=== PATIENT | female | born 1960 | race Caucasian/White ===

== ENCOUNTER → 2020-10-17 10:29 | Outpatient (CLI) | payer BC, SELFPAY ==
--- NOTE | ~2020-10-17 | CT_ITS ---
EXAMINATION:CT lung screening DATE: 10/17/2020 10:45 INDICATION: Personal history of tobacco dependence. Smoker who quit 11 years ago with 30 pack year hi story. TECHNIQUE: Computed tomography (CT) of the chest was performed without intravenous contrast. Automate d exposure control and iterative reconstruction technique were employed. The dose-length product (DLP ) was 243.47 mGy-cm. COMPARISON: None. FINDINGS: There is mild scarring in paraspinal right lower lobe. No pleural effusion. The heart size is normal. No pericardial effusion. There is a 2.7 cm cyst in the spleen. There are changes of anteri or fusion procedure in cervical spine. There is mild thoracic spondylosis. IMPRESSION: 1. Lung-RADS category 2: Benign appearance or behavior. Continue annual screening with noncontrast lo w-dose chest CT in 12 months. Reviewed, dictated and finalized at location A. IMPRESSION: 1. Lung-RADS category 2: Benign appearance or behavior. Continue annual screeni ng with noncontrast low-dose chest CT in 12 months.
== END ==
PROVIDERS: PCP Family Medicine; Visit Provider Family Medicine
DX: Z12.2 Encounter for screening for malignant neoplasm of respiratory organs (principal); Z87.891 Personal history of nicotine dependence
CPT/HCPCS: 71271

== ENCOUNTER → 2021-05-13 11:43 | Outpatient (CLI) | payer BC, SELFPAY ==
--- NOTE | ~2021-05-13 | DEXA_ITS ---
Bone Density Report Name: GURMEET SPRAGUE Age: 60 Sex: Female Ethnicity: White Date of : 1960 Indication: postmenopausal; screening for osteoporosis; height loss; asthma or emphysema; hysterectomy; Referring Provider: MAURILIO CONTRERAS Study: Bone densitometry was performed. Exam Date: May 13, 2021 Accession number: [id number] Bone Density: Region BMD T-score Z-score Classification AP Spine (L1-L4) 1.222 1.6 3.1 Normal Femoral Neck (Left) 0.611 -2.1 -0.8 Osteopenia Total Hip (Left) 0.825 -1.0 0.1 Normal Femoral Neck (Right) 0.647 -1.8 -0.5 Osteopenia Total Hip (Right) 0.824 -1.0 0.1 Normal Total Hip Mean 0.825 -1.0 0.1 Normal World Health Organization criteria for BMD impression classify patients as: Normal (T-score at or above -1.0), Osteopenia (T-score between -1.0 and -2.5), or Osteoporosis (T-score at or below -2.5). 10-year Fracture Risk(1): Major Osteoporotic Fracture 9.7% Hip Fracture 1.3% Reported Risk Factors: [place] (), Neck BMD=0.611, BMI=35.0 (1) FRAX(R) Version 3.08. Fracture probability calculated for an untreated patient. Fracture probability may be lower if the patient has received treatment. Clinical Information Provided by Patient: Has used the following medications: Vitamin D, Calcium Has the following medical conditions: Asthma or Emphysema, Hysterectomy Patient maximum height was 64.5 Menopause Age: 60 Does not regularly consume dairy products Drinks caffeinated beverages Onset of menses at age 11 Number of children 2 Impression: The patient has low bone mass, based on the Left Femoral Neck T-score. The patient has an estimated ten-year risk of hip fracture of 1.3% and an estimated ten-year risk of major fracture of 9.7%, based on the WHO FRAX algorithm. Discussion: BONE DENSITY IS LOW AT ONE OR MORE SKELETAL SITES. This patient's lowest T-score is low at one or more skeletal sites. It meets the World Health Organization's (WHO) criteria for ?low bone mass? (T-score between -1.0 and -2.5). The patient's 10-year risk of fracture as calculated by FRAX is less than the threshold where pharmacological therapy is recommended by the National Osteoporosis Foundation (NOF). However, all treatment decisions require clinical judgment and consideration of individual patient factors, including patient preferences, comorbidities, previous drug use, risk factors not captured in the FRAX model (e.g., frailty, falls, vitamin D deficiency, increased bone turnover, interval significant decline in bone density) and possible under or overestimation of fracture risk by FRAX. The patient should follow a healthful lifestyle (good nutrition with adequate calcium and vitamin D, and appropriate weight-bearing exercise). Follow-Up: Consider repeating this study in 2 to 3 ye
== END ==
PROVIDERS: Visit Provider Family Medicine
DX: M85.852 Other specified disorders of bone density and structure, left thigh (principal); M85.851 Other specified disorders of bone density and structure, right thigh
CPT/HCPCS: 77080

== ENCOUNTER 2021-10-20 13:53 | Emergency (ER) | payer BC, SELFPAY ==
--- NOTE | ~2021-10-20 | XR_ITS ---
EXAMINATION: XR ankle RT min 3V DATE: 10/20/2021 14:11 INDICATION: Right ankle injury and pain. TECHNIQUE: 4 views of right ankle were obtained. COMPARISON: None. FINDINGS: There is an oblique fracture of distal fibula with medial aspect of the fracture line 2 mm proximal to the level of the tibial plafond. The distal fracture fragment demonstrates 2 mm lateral d isplacement. Joint spaces are normal. There is an enthesophyte at plantar aspect of calcaneal tuberos ity. Ankle soft tissue swelling is noted. IMPRESSION: 1. Oblique fracture of distal fibula. Reviewed, dictated and finalized at location A.
--- NOTE | 2021-10-20 13:58 | ED.LOWEXIN ---
HPI - Extremity Injury (Lower) General Chief Complaint: Extremity Injury, Lower Stated Complaint: R ANKLE INJURY Time Seen by Provider: 10/20/21 13:58 Source: patient and RN notes reviewed History of Present Illness HPI Narrative: Patient 61-year-old female presents the urgent care with complaints of right ankle pain and swelling. Patient states that on the she missed 1 step going down the basement steps and twisted the right ankle. Patient states that she has been elevating, using ice/Tylenol/ibuprofen as needed for pain and comfort. Patient states that she has wrapped it with the Louis wrap which seems to increase the swelling . Patient states her pain is exacerbated with ambulation and weightbearing. No other acute complaints or injuries from the fall. No acute distress noted. Patient aware of the plan of care. Some parts of this dictation were generated by voice recognition software and may contain typographical and/or grammatical inaccuracies. Related Data Home Medications Medication Instructions Recorded Confirmed albuterol sulfate 90 mcg/actuation 1 puff inhalation Q4H PRN 07/27/19 07/29/21 aerosol inhaler (Ventolin HFA) ascorbic acid (vitamin C) 1,000 mg 1 gm PO DAILY 07/27/19 07/29/21 tablet famotidine 20 mg tablet (Pepcid AC) 20 mg PO DAILY 07/27/19 07/29/21 fluticasone furoate 200 1 inhalation inhalation DAILY 07/27/19 07/29/21 mcg-vilanterol 25 mcg/dose inhalation powder (Breo Ellipta) nfrakshaiuel-Jw-iudj-minerals 1 tablet PO DAILY 07/27/19 07/29/21 (Multiple Vitamin, Womens tablet) tiotropium bromide 18 mcg capsule 1 cap inhalation DAILY 07/27/19 07/29/21 with inhalation device (Spiriva with HandiHaler) paroxetine HCl 10 mg tablet (Paxil) 10 mg PO DAILY 10/17/19 07/29/21 epinephrine 0.15 mg/0.3 mL 0.15 mg IM Q30M PRN 02/25/21 07/29/21 injection,auto-injector (EpiPen Jr 2-[place]) eyepromise restore BYMOUTH ONCE 02/25/21 07/29/21 Allergies Allergy/AdvReac Type Severity Reaction Status Date / Time shellfish derived Allergy Severe anaphylaxis Verified 10/20/21 14:03 acrisorcin Allergy Mild Rash Verified 10/20/21 14:03 benazepril Allergy Unknown cough Verified 10/20/21 14:03 cat dander Allergy Unknown unknown Verified 10/20/21 14:03 cefuroxime Allergy Unknown Skin Verified 10/20/21 14:03 Reaction demeclocycline Allergy Unknown Skin Verified 10/20/21 14:03 Reaction dog dander Allergy Unknown unknown Verified 10/20/21 14:03 Sulfa (Sulfonamide Allergy Unknown Skin Verified 10/20/21 14:03 Antibiotics) Reaction SHELLFISH Allergy Mild SWELLING/ Uncoded 10/20/21 14:03 RASH/anaphylaxis Review of Systems Review of Systems: CONSTITUTIONAL: Denies fever, chills, or sweats. EYES: Denies visual changes, redness, or discharge. ENT: Denies rhinorrhea, congestion, sore throat, or otalgia. CARDIOVASCULAR: Denies chest pain, palpitations, or edema. RESPIRATORY: Denies cough or dyspnea. GASTROINTESTINAL: Denies abdominal pain, nausea, vomiting, or diarrhea. GENITOURINARY: Denies dysuria or hematuria. SKIN: Denies rash or itching. MUSCULOSKELETAL: Reports of right ankle pain and swelling NEUROLOGIC: Denies headache, numbness, or weakness. All other systems reviewed are negative, except as documented in HPI. [facility] Past Medical History Medical History Benign neoplasm of colon Surgical History Surgical History History of left breast biopsy path pending Family History Family History Father Diabetes mellitus Hypertension Mother Hypertension Family history of elevated blood lipids Grandparent Family history of malignant neoplasm of breast Other Family history of arthritis Family history of malignant neoplasm Social History Social History (Updated 07/29/21 @ 10:57 by Aide Jha CMA) Smoking packs pe
[2021-10-20 14:00] VITALS: BP 109/62; PULSE 73; RESP 16; TEMP 36.9; O2SAT 96
== END 2021-10-20 15:01 | disposition home or self-care (01) ==
PROVIDERS: Emergency Provider Nurse Practitioner Family; PCP Family Medicine
DX: S82.831A Other fracture of upper and lower end of right fibula, initial encounter for closed fracture (principal); X50.9XXA Other and unspecified overexertion or strenuous movements or postures, initial encounter; Z87.891 Personal history of nicotine dependence
CPT/HCPCS: 29515; 73610; 99214; G0463

== ENCOUNTER → 2021-11-13 10:41 | Outpatient (CLI) | payer BC, SELFPAY ==
--- NOTE | ~2021-11-13 | CT_ITS ---
EXAMINATION: CT lung screening DATE: 11/13/2021 10:59 INDICATION: Personal history of tobacco dependence TECHNIQUE: Computed tomography (CT) of the chest was performed without intravenous contrast. The dose -length product was 202.86 mGy-cm. Automated exposure control and iterative reconstruction technique were employed. COMPARISON: CT dated 10/17/2020 FINDINGS: No thoracic lymphadenopathy. Heart size normal. No significant pleural or pericardial effus ion. Small hiatal hernia. There is a splenic cyst measuring 2 cm. Mild thoracic spondylosis. There ar e changes of anterior fusion of the cervical spine. No endobronchial lesions. No pneumothorax. No foc al airspace consolidation. There is a 2 mm left upper lobe nodule. IMPRESSION: 1. Lung-RADS category 2: Benign appearance or behavior. Continue annual screening with noncontrast lo w-dose chest CT in 12 months. Reviewed, dictated and finalized at location A. IMPRESSION: 1. Lung-RADS category 2: Benign appearance or behavior. Continue annual screeni ng with noncontrast low-dose chest CT in 12 months.
== END ==
PROVIDERS: PCP Family Medicine; Visit Provider Family Medicine
DX: Z12.2 Encounter for screening for malignant neoplasm of respiratory organs (principal); Z87.891 Personal history of nicotine dependence
CPT/HCPCS: 71271

== ENCOUNTER → 2022-12-18 10:19 | Outpatient (CLI) | payer BC, SELFPAY ==
--- NOTE | ~2022-12-18 | CT_ITS ---
EXAMINATION: CT lung screening DATE: 12/18/2022 10:31 INDICATION: Lung cancer screening TECHNIQUE: Computed tomography (CT) of the chest was performed without intravenous contrast. The dose -length product was 332.52 mGy-cm. Automated exposure control and iterative reconstruction technique were employed. COMPARISON: CT dated 11/13/2021 FINDINGS: No significant pleural or pericardial effusion. Small hiatal hernia. Heart size normal. No thoracic lymphadenopathy. No significant vascular abnormality. Upper abdomen is unremarkable. No endo bronchial lesions. No pneumothorax. No focal airspace consolidation. Stable splenic cysts. Mild emphy sema. No suspicious pulmonary nodules or masses. Partially visualized surgical fusion changes of the lower cervical spine. Mild thoracic spondylosis. IMPRESSION: 1. Lung-RADS category 1: Negative. Continue annual screening with noncontrast low-dose chest CT in 12 months. Reviewed, dictated and finalized at location B. IMPRESSION: 1. Lung-RADS category 1: Negative. Continue annual screening with noncontrast l ow-dose chest CT in 12 months.
== END ==
PROVIDERS: PCP Family Medicine; Visit Provider Family Medicine
DX: Z12.2 Encounter for screening for malignant neoplasm of respiratory organs (principal); Z87.891 Personal history of nicotine dependence
CPT/HCPCS: 71271

== ENCOUNTER 2023-03-17 02:24 | Day surgery (SDC) | payer BC, SELFPAY ==
[2023-03-03 13:50] VITALS: BMI 39.0
--- NOTE | 2023-03-15 09:16 | SUR.PREOP ---
Patient called regarding upcoming procedure. Message left on patient' s voicemail regarding preop instructions, appointment times, and procedure prep.
--- NOTE | 2023-03-16 13:23 | PM.HPGS ---
History of Present Illness History of Present Illness Consent: Risks, benefits, and alternatives have been discussed and questions answered. Patient agrees to proceed with procedure. Chief complaint: hx of colon polyps Narrative: Yumi Tello is a 62 year old female referred for colon cancer screening. She had a polyp removed in 2011 and again in 2019. Review of Systems Review of Systems: All systems reviewed & are unremarkable except as noted in HPI and below PMFSH Past Medical History Medical History Benign neoplasm of colon Breast pain, left Fracture of distal fibula Surgical History Surgical History History of hysterectomy (~06/28/07) Uterus & Cervix Only History of laparoscopy (~1989) Removal of Ovarian Cyst History of left breast biopsy path pending History of neck surgery (~01/27/18) Anterior Cervical Discectomy & Fusion C5-6, C6-7 History of tubal ligation (~08/1984) Family History Family History Father Diabetes mellitus Hypertension Mother Hypertension Family history of elevated blood lipids Grandparent Family history of malignant neoplasm of breast Other Family history of arthritis Family history of malignant neoplasm Social History Social History Smoking packs per day: 1 Smoking cigarettes per day: 20.0 Years smoked: 35 Smoking pack-years: 35.00 Smoking status: Never smoker Second hand tobacco smoke exposure: No Smoking end date: 04/05/13 Alcohol intake: current Alcohol use details: once every couple weeks Substance use type: does not use Lack of Transportation: No Lack of Food: Never True Current Housing: I Have Housing Concerned About Future Housing: No Difficulty Paying Gas/Electric Bills: No Difficulty Paying for Meds: No Currently Unemployed: No Education: Bachelor's Degree Difficulty w/ Childcare or Family Care: No Living arrangements: alone Meds Home Medications and Allergies Home Medications Medication Instructions Recorded Confirmed Type famotidine 20 mg tablet (Pepcid AC) 20 mg PO DAILY 07/27/19 03/17/23 History fluticasone furoate 200 1 inhalation inhalation DAILY 07/27/19 03/17/23 History mcg-vilanterol 25 mcg/dose inhalation powder (Breo Ellipta) zvnvwjoycqod-Oo-jwgv-minerals 1 tablet PO DAILY 07/27/19 03/17/23 History (Multiple Vitamin, Womens tablet) tiotropium bromide 18 mcg capsule 1 cap inhalation DAILY 07/27/19 03/17/23 History with inhalation device (Spiriva with HandiHaler) paroxetine HCl 10 mg tablet (Paxil) 10 mg PO DAILY 10/17/19 03/17/23 History eyepromise restore 8 mg BYMOUTH ONCE 02/25/21 03/17/23 History albuterol sulfate 90 mcg/actuation 1 puff inhalation DAILY PRN 11/10/22 03/17/23 History aerosol inhaler (Ventolin HFA) Shortness Of Breath epinephrine 0.3 mg/0.3 mL See Rx Instructions .Route .COMPLEX 11/10/22 03/17/23 History injection, auto-injector (EpiPen) meclizine 25 mg chewable tablet 25 mg PO TID PRN dizziness #30 tabs 11/10/22 03/17/23 Rx (Antivert) telmisartan 20 mg tablet 10 mg PO DAILY #45 tabs 01/20/23 03/17/23 Rx atorvastatin 40 mg tablet 40 mg PO DAILY 03/03/23 03/17/23 History Allergies Allergy/AdvReac Type Severity Reaction Status Date / Time shellfish derived Allergy Severe anaphylaxis Verified 03/17/23 07:27 acrisorcin Allergy Mild Rash Verified 03/17/23 07:27 benazepril Allergy Unknown cough Verified 03/17/23 07:27 cat dander Allergy Unknown unknown Verified 03/17/23 07:27 cefuroxime Allergy Unknown Skin Verified 03/17/23 07:27 Reaction demeclocycline Allergy Unknown Skin Verified 03/17/23 07:27 Reaction dog dander Allergy Unknown unknown Verified 03/17/23 07:27 Sulfa (Sulfonamide Allergy Unknown Skin Verified 03/17/23 07:27 Antibio
[2023-03-17 07:30] VITALS: BP 123/68; PULSE 76; RESP 18; TEMP 36.3; O2SAT 97
[2023-03-17] MEDS: LACTATED RINGERS 1,000 ML 150 ML IV CONT (07:37)
--- NOTE | 2023-03-17 07:58 | WPDANESEPPF ---
Anes - Initial Pre Proc Eval Procedure: Operation Date: 03/17/23 08:30 Proposed Procedures p Colonoscopy - David Geller MD Date/Time: 03/17/23 07:58 Surgeon: David Geller MD Pre Op Diagnosis: hx of colon polyps Patient Data Age: 62 Gender: F Height: 1.6 m Weight: 97.4 kg Last Vital Signs Temp 97.3 F L 03/17/23 07:30 Pulse 76 03/17/23 07:30 Resp 18 03/17/23 07:30 BP 123/68 03/17/23 07:30 Pulse Ox 97 03/17/23 07:30 O2 Del Method Room Air 03/17/23 07:30 Allergies Allergy/AdvReac Type Severity Reaction Status Date / Time shellfish derived Allergy Severe anaphylaxis Verified 03/17/23 07:27 acrisorcin Allergy Mild Rash Verified 03/17/23 07:27 benazepril Allergy Unknown cough Verified 03/17/23 07:27 cat dander Allergy Unknown unknown Verified 03/17/23 07:27 cefuroxime Allergy Unknown Skin Verified 03/17/23 07:27 Reaction demeclocycline Allergy Unknown Skin Verified 03/17/23 07:27 Reaction dog dander Allergy Unknown unknown Verified 03/17/23 07:27 Sulfa (Sulfonamide Allergy Unknown Skin Verified 03/17/23 07:27 Antibiotics) Reaction Home Medications Medication Instructions Recorded Confirmed Type famotidine 20 mg tablet (Pepcid AC) 20 mg PO DAILY 07/27/19 03/17/23 History fluticasone furoate 200 1 inhalation inhalation DAILY 07/27/19 03/17/23 History mcg-vilanterol 25 mcg/dose inhalation powder (Breo Ellipta) dbsgzozxvpki-Mm-khtx-minerals 1 tablet PO DAILY 07/27/19 03/17/23 History (Multiple Vitamin, Womens tablet) tiotropium bromide 18 mcg capsule 1 cap inhalation DAILY 07/27/19 03/17/23 History with inhalation device (Spiriva with HandiHaler) paroxetine HCl 10 mg tablet (Paxil) 10 mg PO DAILY 10/17/19 03/17/23 History eyepromise restore 8 mg BYMOUTH ONCE 02/25/21 03/17/23 History albuterol sulfate 90 mcg/actuation 1 puff inhalation DAILY PRN 11/10/22 03/17/23 History aerosol inhaler (Ventolin HFA) Shortness Of Breath epinephrine 0.3 mg/0.3 mL See Rx Instructions .Route .COMPLEX 11/10/22 03/17/23 History injection, auto-injector (EpiPen) meclizine 25 mg chewable tablet 25 mg PO TID PRN dizziness #30 tabs 11/10/22 03/17/23 Rx (Antivert) telmisartan 20 mg tablet 10 mg PO DAILY #45 tabs 01/20/23 03/17/23 Rx atorvastatin 40 mg tablet 40 mg PO DAILY 03/03/23 03/17/23 History Patient hx anesthesia problems: none Family hx anesthesia problems: none Results Review: All pre-operative results and documents have been reviewed as part of the pre-operative evaluation. [facility] Past Medical History Medical History Benign neoplasm of colon Breast pain, left Fracture of distal fibula Surgical History Surgical History History of hysterectomy (~06/28/07) Uterus & Cervix Only History of laparoscopy (~1989) Removal of Ovarian Cyst History of left breast biopsy path pending History of neck surgery (~01/27/18) Anterior Cervical Discectomy & Fusion C5-6, C6-7 History of tubal ligation (~08/1984) Family History Family History Father Diabetes mellitus Hypertension Mother Hypertension Family history of elevated blood lipids Grandparent Family history of malignant neoplasm of breast Other Family history of arthritis Family history of malignant neoplasm Social History Social History Smoking packs per day: 1 Smoking cigarettes per day: 20.0 Years smoked: 35 Smoking pack-years: 35.00 Smoking status: Never smoker Second hand tobacco smoke exposure: No Smoking end date: 04/05/13 Alcohol intake: current Alcohol use details: once every couple weeks Substance use type: does not use Lack of Transportation: No Lack of Food: Never True Current Housing: I Have Housing Concerned About Future Housing: No
[2023-03-17 08:29] VITALS: BP 96/52; PULSE 77; RESP 16; O2SAT 95
[2023-03-17 08:39] VITALS: BP 95/53; PULSE 77; RESP 20; O2SAT 99
[2023-03-17 08:49] VITALS: BP 108/60; PULSE 74; RESP 17; O2SAT 100
== END 2023-03-17 08:58 | disposition home or self-care (01) ==
PROVIDERS: PCP Family Medicine; Visit Provider Internal Medicine Gastroenterology
PROC: 0DJD8ZZ Inspection of Lower Intestinal Tract, Via Natural or Artificial Opening Endoscopic (ICD-10-PCS; CPT 45378; principal; 2023-03-17 08:30)
DX: Z12.11 Encounter for screening for malignant neoplasm of colon (principal); K63.5 Polyp of colon; K64.8 Other hemorrhoids; Z79.51 Long term (current) use of inhaled steroids; Z98.1 Arthrodesis status; Z87.891 Personal history of nicotine dependence; E66.9 Obesity, unspecified; Z68.38 Body mass index [BMI] 38.0-38.9, adult
CPT/HCPCS: 45380; 88305; J2704; J7120

== ENCOUNTER 2023-06-07 11:20 | Outpatient (CLI) | payer BC, SELFPAY | END 2023-06-07 11:21 | disposition home or self-care (01) | LOC: ANHAUDASC 11:21 | PROVIDERS: PCP Family Medicine; Visit Provider Family Medicine | DX: M48.02 Spinal stenosis, cervical region (principal); G99.2 Myelopathy in diseases classified elsewhere; H90.3 Sensorineural hearing loss, bilateral | CPT/HCPCS: 92557; 92567 ==

== ENCOUNTER → 2023-06-08 10:30 | Outpatient (CLI) | payer BC, SELFPAY ==
--- NOTE | ~2023-06-08 | XR_ITS ---
EXAMINATION: XR chest 2V DATE: 06/08/2023 10:45 INDICATION: Persistent cough. TECHNIQUE: Frontal and lateral views of the chest were obtained. COMPARISON: Chest 2 views 12/01/2018, CT chest 12/18/2022 FINDINGS: There is no pneumonia, pleural effusion, or pneumothorax. The heart size is normal. There a re changes of anterior fusion procedure in cervical spine. IMPRESSION: 1. No acute cardiopulmonary disease. Reviewed, dictated and finalized at location E. ITUAL COUNSELOR
== END ==
PROVIDERS: PCP Family Medicine; Visit Provider Family Medicine
DX: R05.9 Cough, unspecified (principal)
CPT/HCPCS: 71046

== ENCOUNTER 2024-02-18 13:46 | Outpatient (CLI) | payer BC, SELFPAY ==
--- NOTE | ~2024-02-18 | CT_ITS ---
EXAMINATION:CT lung screening DATE: 02/18/2024 14:00 INDICATION: Personal history of nicotine dependence. Smoker who quit 10 years ago with 35 pack year h istory. TECHNIQUE: Computed tomography (CT) of the chest was performed without intravenous contrast. Automate d exposure control and iterative reconstruction technique were employed. The dose-length product (DLP ) was 240.26 mGy-cm. COMPARISON: Chest CT 12/18/2022 FINDINGS: The lungs demonstrate mild scarring in paraspinal right lower lobe. No pleural effusion. Th e heart size is normal. No pericardial effusion. There is a small sliding hiatal hernia. There are ch anges of anterior fusion procedure in cervical spine. There is moderate thoracic spondylosis. IMPRESSION: 1. Lung-RADS category 2: Benign appearance or behavior. Continue annual screening with noncontrast lo w-dose chest CT in 12 months. Reviewed, dictated and finalized at location A. SLIDER IMPRESSION: 1. Lung-RADS category 2: Benign appearance or behavior. Continue annual screeni ng with noncontrast low-dose chest CT in 12 months.
== END 2024-02-18 13:47 | disposition home or self-care (01) ==
LOC: MICIMG 13:47
PROVIDERS: PCP Family Medicine; Visit Provider Student in an Organized Health Care Education/Training Program
DX: Z12.2 Encounter for screening for malignant neoplasm of respiratory organs (principal); Z87.891 Personal history of nicotine dependence
CPT/HCPCS: 71271

== ENCOUNTER 2024-04-06 12:37 | Outpatient (CLI) | payer BC, SELFPAY ==
--- NOTE | ~2024-04-06 | XR_ITS ---
HISTORY: M25.519 - Pain in unspecified shoulder COMPARISON: None TECHNIQUE: 3 views of the right shoulder were performed FINDINGS: No acute fracture. The glenohumeral and acromioclavicular joint space is maintained The visualized portion of the adjacent right lung is clear. The humeral head is well seated within the glenoid fossa. IMPRESSION: No acute fracture or anterior dislocation. Reviewed, dictated and finalized at location A. E QA TESTER
== END 2024-04-06 12:38 | disposition home or self-care (01) ==
LOC: MICIMG 12:38
PROVIDERS: PCP Family Medicine; Visit Provider Student in an Organized Health Care Education/Training Program
DX: M25.511 Pain in right shoulder (principal)
CPT/HCPCS: 73030

== ENCOUNTER 2024-06-20 10:04 | Outpatient (CLI) | payer MEDICARE, OTHER, SELFPAY ==
--- NOTE | 2024-06-20 11:00 | NEURO_ITS ---
Impression: # Complains of right forearm numbness. Non-diabetic. ? # No Carpal Tunnel Syndrome or ulnar neuropathy. ? # Needle/EMG exam abnormal in bilateral triceps related to previous neck surgery. ? # Clinical correlation recommended. Nerve Conduction Studies Anti Sensory Summary Table ?Stim Site NR Peak (ms) P-T Amp (?V) Site1 Site2 Delta-P (ms) Dist (cm) Nabil (m/s) Left Median Anti Sensory (2-3nd Digit) Wrist ? 2.6 20.7 Wrist 2-3nd Digit 2.6 14.0 54 Wrist ? 2.8 27.4 Wrist 2-3nd Digit 2.6 14.0 54 Right Median Anti Sensory (2-3nd Digit) Wrist ? 2.4 73.9 Wrist 2-3nd Digit 2.4 14.0 58 Wrist ? 2.4 77.9 Wrist 2-3nd Digit 2.4 14.0 58 Left Radial Anti Sensory (Base 1st Digit) Wrist ? 2.2 34.1 Wrist Base 1st Digit 2.2 0.0 Right Radial Anti Sensory (Base 1st Digit) Wrist ? 2.3 36.2 Wrist Base 1st Digit 2.3 0.0 Left Ulnar Anti Sensory (5th Digit) Wrist ? 2.7 31.2 Wrist 5th Digit 2.7 14.0 52 Right Ulnar Anti Sensory (5th Digit) Wrist ? 2.3 30.3 Wrist 5th Digit 2.3 14.0 61 Motor Summary Table ?Stim Site NR Onset (ms) O-P Amp (mV) Site1 Site2 Delta-0 (ms) Dist (cm) Nabil (m/s) Left Median Motor (Abd Poll Brev) Wrist ? 2.7 6.2 Elbow Wrist 4.6 28.0 61 Elbow ? 7.3 3.5 Right Median Motor (Abd Poll Brev) Wrist ? 2.5 7.5 Elbow Wrist 4.7 28.0 60 Elbow ? 7.2 5.0 Left Ulnar Motor (Abd Dig Minimi) Wrist ? 2.3 6.7 A Elbow Wrist 5.0 30.0 60 A Elbow ? 7.3 4.1 Right Ulnar Motor (Abd Dig Minimi) Wrist ? 2.3 6.7 A Elbow Wrist 4.9 29.0 59 A Elbow ? 7.2 6.1 F Wave Studies ?NR F-Lat (ms) L-R F-Lat (ms) Left Median (Mrkrs) (Abd Poll Brev) ? 25.40 0.41 Right Median (Mrkrs) (Abd Poll Brev) ? 25.81 0.41 Left Ulnar (Mrkrs) (Abd Dig Min) ? 25.78 0.39 Right Ulnar (Mrkrs) (Abd Dig Min) ? 25.39 0.39 EMG ?Side Muscle Nerve Root Ins Act Fibs Amp Dur Recrt Comment Right 1stDorInt Ulnar C8-T1 Nml Nml Nml Nml Nml Right Ext Indicis Radial (Post Int) C7-8 Nml Nml Nml Nml Nml Right Ext Digitorum Radial (Post Int) C7-8 Nml Nml Nml Nml Nml Right BrachioRad Radial C5-6 Nml Nml Nml Nml Nml Right PronatorTeres Median C6-7 Nml Nml Nml Nml Nml Right Abd Poll Brev Median C8-T1 Nml Nml Nml Nml Nml Right ABD Dig Min Ulnar C8-T1 Nml Nml Nml Nml Nml Left 1stDorInt Ulnar C8-T1 Nml Nml Nml Nml Nml Left Ext Indicis Radial (Post Int) C7-8 Nml Nml Nml Nml Nml Left Ext Digitorum Radial (Post Int) C7-8 Nml Nml Nml Nml Nml Left BrachioRad Radial C5-6 Nml Nml Nml Nml Nml Left PronatorTeres Median C6-7 Nml Nml Nml Nml Nml Left Abd Poll Brev Median C8-T1 Nml Nml Nml Nml Nml Left ABD Dig Min Ulnar C8-T1 Nml Nml Nml Nml Nml Right FlexPolLong Median (Ant Int) C7-8 Nml Nml Nml Nml Nml Right Abd Poll Long Radial (Post Int) C7-8 Nml Nml Nml Nml Nml Left FlexPolLong Median (Ant Int) C7-8 Nml Nml Nml Nml Nml Left Abd Poll Long Radial (Post Int) C7-8 Nml Nml Nml Nml Nml Right Biceps Musculocut C5-6 Nml Nml Nml Nml Nml Right Triceps Radial C6-7-8 Nml Nml Incr >12ms +1 Left Biceps Musculocut C5-6 Nml Nml Nml Nml Nml Left Triceps Radial C6-7-8 Nml Nml Incr >12ms +1 MTDD
--- OUTSIDE RECORDS SUMMARY | 2024-06-20 11:20 | XMS_ITS | Clinical Summary ---
Author Organization [facility] Administrative Offices Address [address] [place] [address] Care Team Providers Care Welt Stitcher Name Role Phone Saurav Huff MD Primary Care Provider [phone]- [phone] Allergies Active Allergy Reactions Criticality Noted Date Comments Achromycin Rash Low 01/17/2018 Benazepril Cough Medium 12/28/2017 Cat Dander Hives High 12/28/2017 Cefuroxime Axetil Rash Medium 12/28/2017 Demeclocycline Rash Low 01/17/2018 Dog Dander Hives High 12/28/2017 Shellfish Containing Products Hives,Angioedema High 12/28/2017 Sulfa (Sulfonamide Antibiotics) Hives High 08/2005 Medications ADVAIR DISKUS 250 MCG-50 MCG/DOSE FOR INHALATION 1 bid 3.00 3 6 Active PROAIR HFA 90 MCG/ACTUATION AEROSOL INHALER inhale one to two puffs every 4 to 6 hours 8.50 11 7 Active ALBUTEROL 90 MCG/ACTUATION AEROSOL INHALER as needed 3.00 3 6 Active FLONASE 50 MCG/ACTUATION NASAL SPRAY 2 sprays per nostil QD 3.00 3 6 Active PRILOSEC OTC 20 MG TAB qd 90.00 0 6 Active telmisartan (MICARDIS) 40 mg Tablet Take 40 mg by mouth late in the day. Active estradiol (ESTRACE) 1 mg tablet Take 1 mg by mouth daily. Active mometasone-form oterol (DULERA) 200-5 mcg/actuation inhaler Take 2 Puffs by inhalation 2 times daily. Active tiotropium (SPIRIVA) 18 mcg capsule Take 18 mcg by inhalation daily. Active vit B cmplx 3-FA-Vit C-Biotin (RENAVITE-RX RX) 1-60-300 mg-mg-mcg Tablet Take 1 Tablet by mouth daily. Active HYDROcodone-sade taminophen (NORCO) 5-325 mg tablet Take 1-2 Tablets by mouth every 4 hours as needed for Pain. Max Daily Amount: 12 Tablets 84 Tablet 8 Active cyclobenzaprine (FLEXERIL) 10 mg tablet Take 1 Tablet (10 mg) by mouth 3 times daily as needed for Spasm. 60 Tablet 1 8 Active fluticasone furoate-vilante roL (Breo Ellipta) 200-25 mcg/dose Disk with Device Take 1 Puff by inhalation daily. Active famotidine (PEPCID) 20 mg tablet Take 20 mg by mouth 2 times daily. Active multivit-min/fe rrous fumarate (MULTI VITAMIN ORAL) Take 1 Tablet by mouth daily. Active ascorbic acid, vitamin C, (VITAMIN C) 1,000 mg Tablet Take 1,000 mg by mouth daily. Active Saccharomyces boulardii (FLORASTOR) 250 mg Capsule Take 1 mg by mouth daily. Active Black Cohosh 20 mg Tablet Take 1 Tablet by mouth 2 times daily. Active VALERIAN ROOT ORAL Take 1 Tablet by mouth daily. Active valerian root/hops (VALERIAN-HOPS ORAL) Take 1 Tablet by mouth daily. Active Active Problems Problem Noted Date Diagnosed Date Cervical spinal cord compression 01/17/2018 Esophageal reflux 10/07/2005 Routine general medical exam ination at a health care facility 10/07/2005 Anemia, unspecified 10/07/2005 Allergic rhinitis due to other allergen 10/08/19 06 Immunizations Immunization Administration Dates Next Due Influenza Seasonal Unspecified Formulation IM PNEUMOVAX (PPSV23) pneumococ jw polysaccharide 23-valent Vaccine 01/05/2018 Social History Tobacco Use Types Packs/Day Years Used Date Smoking Tobacco: Former Smokeless Tobacco: Never Alcohol Use Standard Drinks/Week Comments Yes 0 (1 standard drink = 0.6 oz pur e alcohol) SOCIAL, occasional Comments No Sex and Gender Information Value Date Recorded Sex Assigned at Not on file 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 Gender Identity Not on file Sexual Orientation Not on file Last Filed Vital Signs Vital Sign Reading Time Taken Comments Blood Pressure 95/64 10/18/2019 2:45 PM CDT Pulse 94 10/18/2019 2:45 PM CDT Temperature 36.8 C (98.2 F) 10/18/2019 2:45 PM CDT Respiratory Rate 16 01/18/2018 9:07 AM CDT Oxygen Saturation 98% 01/18/2018 9:07 AM CDT Inhaled Oxygen Concentration - - Weight 107 kg (236 lb) 10/18/2019 2:45 PM CDT Height 160 cm (5' 3 ) 10/18/2019 2:45 PM CDT Body Mass Index 41.81 10/18/2019 2:45 PM CDT Plan of Treatment Health Maintenance Due Date Last Done Comments DTAP/TDAP/TD VACCINES (1 - Tdap) 07/04/1978 CERVICAL CANCER SCREENING 07/04/1989 BREAST CANCER SCREENING 1999 COLORECTAL SCREENING 07/04/2004 Colorectal Cancer Screening 07/04/2004 FIT-DNA Q 3 years 07/04/2004 FIT/FOBT Q 1 year 07/04/2004 Flex Sig/CT Colonography Q 5 years 07/04/2004 ZOSTER VACCINE (1 of 2) 07/04/2009 INFLUENZA VACCINE (#1) 2023 01/03/2018 RSV VACCINE (60+ or ) (1 - 1-dose 75+ series) 07/04/2034 PNEUMOCOCCAL VACCINE 0-49 YEARS Aged Out 8 No longer eligible based on patient's age to complete this topic Medical Devices Implanted Type Area Business Analytics Faculty Member Device Identifier Shelf Expiration Date Model / Serial / Lot Plate [place] 2lvl 30mm Ti 030 - Ssterilized Dec 28 2017 Implanted:Qty: 1 on 01/17/2018 by Mario Osei MD at [facility] Plate N/A: Spine Cervical Anterior [employer] 30 / STERILIZE D DEC 28 2017 / LOAD 15 Description:all Depuy spinal hardware was processed on requisition,[id number]. Screw [place] Vari Sd 14mm 50-014 - Ssterilized Dec 28 2017 Implanted:Qty: 6 on 01/17/2018 by Mario Osei MD at [facility] Screw N/A: Spine Cervical Anterior [employer] 1868-50-0 14 / STERILIZE D DEC 28 2017 / LOAD 15 Allgrft Spacer Acf 7mm [id number] - [id number] Implanted:Qty: 1 on 01/17/2018 by Mario Osei MD at [facility] Tissue N/A: Spine Cervical Anterior [employer]PL[employer] FOU 06/09/2022 [id number] / [id number] / Description:REQ#[id number] Allgrft Spacer Acf 6mm [id number] - [id number] Implanted:Qty: 1 on 01/17/2018 by Mario Osei MD at [facility] Tissue N/A: Spine Cervical Anterior [employer]OSKELETAL TRANSPLANT FOU 05/15/2022 [id number] / [id number] / Insurance PREFERRED Advance Directives For more information, please contact: [phone] * Full Code (Latest Code Status on File) Date Activated Date Inactivated Comments 01/17/2018 4:58 PM 01/18/2018 3:11 PM * Full Code Date Activated Date Inactivated Comments 01/17/2018 11:45 AM 01/17/2018 4:58 PM * Full Code Date Activated Date Inactivated Comments 01/17/2018 11:40 AM 01/17/2018 11:45 AM Care Teams Welt Stitcher Relationship Specialty Start Date End Date Saurav Huff MD PCP - General Family Practice 12/28/17
--- OUTSIDE RECORDS SUMMARY | 2024-06-20 11:20 | XMS_ITS | Clinical Summary ---
Author Organization [facility] C Address [address] [place] [address] Care Team Providers Care Racing Manager Name Role Phone Magali Huff MD Primary Care Provider + Allergies Active Allergy Reactions Criticality Noted Date Comments Achromycin Rash Medium 09/21/2019 Cat Dander Hives High 12/28/2017 Cefuroxime Rash Medium 09/21/2019 Demeclocycline Rash Medium 01/17/2018 Dog Dander Hives High 12/28/2017 Iodine Hives Medium 09/21/2019 Benazepril Cough Medium 10/02/2014 Shellfish Containing Products Hives Medium 2019 Sulfa (Sulfonamide Antibiotics) Rash Medium 09/03 Medications telmisartan (MICARDIS) 40 mg tablet Take 40 mg by mouth Active Ventolin HFA 90 mcg/actuation inhaler as needed 09/28/2019 Active Breo Ellipta 200-25 mcg/dose diskus inhaler 11/25/2019 Acti ve tiotropium (SPIRIVA) 18 mcg per inhalation capsule Place 18 mcg into inhaler and inhale daily Active PARoxetine (PAXIL) 10 mg tablet 11/25/2019 Active famotidine (PEPCID) 20 mg tablet Take 20 mg by mouth daily Active lactobacillus rhamnosus R0011 (Probiotic Digestive Care) 20 billion cell capsule Take 60 billion CFU by mouth daily Active multivit/folic acid/vit K1 (ONE-A-DAY WOMEN'S 50 PLUS ORAL) Take by mouth daily Active ascorbic acid (vitamin C) 1,000 mg tablet Take 1,000 mg by mouth daily Active black cohosh 20 mg tablet Take by mouth 2 (two) times a day Active Surgical History Surgery Date Site/Laterality Comments BREAST BIOPSY 09/28/2019 Left COLONOSCOPY 11/06/2011 Adematous polyp and Hyperplastic polyp, 5 mm each. TUBAL LIGATION 08/03/1984 - 09/02/1984 LAPAROTOMY OOPHERECTOMY 1979 or 1989 HYSTERECTOMY 06/28/2007 Uterus & cervix only. BACK SURGERY 01/17/2018 Anterior Cervical Discectomy and fusion at C5-C6 and C6-C7 Medical History Medical History Date Comments Personal history of colonic polyps Hypertension Asthma Mild Sleep apnea Family History Medical History Relation Name Comments Diabetes Father Heart disease Father Arteriosclerot ic heart disease Hypertension Father Breast cancer Maternal Grandmother Hyperlipidemia Mother Hypertension Mother Throat cancer Mother Relation Name Status Comments Father Maternal Grandmother Mother Alive Social History Tobacco Use Types Packs/Day Years Used Date Smoking Tobacco: Former Alcohol Use Standard Drinks/Week Comments Not Currently 0 (1 standard drink = 0.6 oz pur e alcohol) Personal Safety Answer Date Recorded Getting School Help Needed Not on file 05/05 Comments Unknown Sex and Gender Information Value Date Recorded Sex Assigned at Not on file 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 Gender Identity Not on file Sexual Orientation Not on file Obstetrics History Plan of Treatment Health Maintenance Due Date Last Done Comments Depression Screening 1960 Hepatitis C Screening 1960 Hepatitis B Screening 07/04/1977 Regular Well Visit/Exam 18-64 07/04/1977 Zoster Vaccine (1 of 2) 07/04/2009 Influenza Vaccine (#1) 2023 9, 01/03/2018, 12/28/2017, Additional history exists DTaP/Tdap/Td Vaccine (2 - Td or Tdap) 12/10/2023 12/09/2013 Breast Cancer Screening-Mammogram 09/22/2024 09/23/2023, 09/21/2022, 09/22/2021, Additional history exists Colon Cancer Screening-Colonoscopy 12/13/2029 12/14/2019 Pneumococcal vaccine <65 Aged Out 01/05/2018 No longer eligible based on patient's age to complete this topic Colon Cancer Screening-CT Colonography Discontinued 12/14/2019 Colon Cancer Screening-DNA Stool Discontinued 12/14/2019 Colon Cancer Screening-FIT Discontinued 12/14/2019 Colon Cancer Screening-Sigmoidoscopy Discontinued 12/14/2019 Procedures Procedure Name Priority Date/Time Associated Diagnosis Comments SCREENING MAMMOGRAM BILATERAL W DELIA Schedule Routine, Read Routine (OP Routine) 09/23/2023 12:50 PM CDT Screening mammogram, encounter for COLONOSCOPY Routine 12/14/2019 from Last 3 Months or Most Recently Relevant to Health Maintenance Results * Screening Mammogram Bilateral W Delia (09/23/2023 12:50 PM CDT) Anatomical Region Laterality Modality Breast Bilateral Mammography Narrative 09/24/2023 10:55 AM CDT Mammogram Technique: Bilateral Digital Breast Tomosynthesis, Bilateral C-view 2D Screening mammogram. Views obtained: bilateral craniocaudal and bilateral mediolateral oblique. Computer Aided Detection was performed. Mammogram Findings: The present examination has been compared to prior imaging studies performed at [facility] on 09/21/2020, 09/22/2021 and 09/21/2022. There are scattered areas of fibroglandular density. There is no suspicious abnormality in either breast. Impression: There is no mammographic evidence of malignancy. Annual screening mammography is recommended. OVERALL FINAL ASSESSMENT: BI-RADS CATEGORY 1: Negative. Procedure Note Funmilayo Arias MD - 09/24/2023 Mammogram Technique: Bilateral Digital Breast Tomosynthesis, Bilateral C-view 2D Screening mammogram. Views obtained: bilateral craniocaudal and bilateral mediolateral oblique. Computer Aided Detection was performed. Mammogram Findings: The present examination has been compared to prior imaging studies performed at [facility] on 09/21/2020, 09/22/2021 and 09/21/2022. There are scattered areas of fibroglandular density. There is no suspicious abnormality in either breast. Impression: There is no mammographic evidence of malignancy. Annual screening mammography is recommended. OVERALL FINAL ASSESSMENT: BI-RADS CATEGORY 1: Negative. us Self Screening Mammogram IMG MAMMO PROCEDURES Fi nal Result * Colonoscopy (12/14/2019) Anatomical Region Laterality Modality Other Pradip Correia MD ENDOSCOPY PROCEDURES Final Result from Last 3 Months or Most Recently Relevant to Health Maintenance [place] Care Teams Racing Manager Relationship Specialty Start Date End Date Magali Huff MD PCP - General 04/02/17
--- OUTSIDE RECORDS SUMMARY | 2024-06-20 11:20 | XMS_ITS | Encounter Summary ---
Author Organization [facility] Address [address] [place] [address] Care Team Providers Care Solder Technician Name Role Phone Saurav Huff MD Primary Care Provider [phone]- [phone] Encounter Details Date Type Department Care Team (Late st Contact Info) Description 10/18/2006 Orders Only [facility] Internal Medicine Medical [place] [address] 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
--- OUTSIDE RECORDS SUMMARY | 2024-06-20 11:20 | XMS_ITS | Referral Summary ---
Author Organization [facility] C Address [address] [place] [address] Care Team Providers Care Toilet Products Molder Name Role Phone Magali Huff MD Primary [...] mouth 2 (two) times a day Active Social History Tobacco Use Types Packs/Day Years Used Date Smoking Tobacco: Former Alcohol Use Standard Drinks/Week Comments Not Currently 0 (1 standard drink = 0.6 oz pur e alcohol) Personal Safety Answer Date Recorded Getting School Help Needed Not on file 05/05 Comments Unknown Sex and Gender Information Value Date Recorded Sex Assigned at Not on file 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 There are [...] compared to prior imaging studies performed at [facility] on 09/21/2020, 09/22/2021 and 09/21/2022. There are scattered areas of fibroglandular density. There is no suspicious abnormality in either breast. Impression: There is no mammographic evidence of malignancy. Annual screening mammography is recommended. OVERALL FINAL ASSESSMENT: BI-RADS CATEGORY 1: Negative. Self Screening Mammogram IMG MAMMO PROCEDURES Fi nal Result * Colonoscopy (12/14/2019) Anatomical Region Laterality Modality Other Pradip Correia MD ENDOSCOPY PROCEDURES Final Result from Last 3 Months or Most Recently Relevant to Health Maintenance Insurance [facility] [place] Care Teams Toilet Products Molder Relationship Specialty Start Date End Date Magali Huff MD PCP - General 04/02/17
--- OUTSIDE RECORDS SUMMARY | 2024-06-20 11:20 | XMS_ITS | Encounter Summary ---
Author Organization [facility] Address 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 Gender Identity Not on file Sexual Orientation Not on file documented as of this encounter Plan of Treatment Not on file documented as of this encounter Procedures Procedure Name Priority Date/Time Associated Diagnosis Comments CBC WITH DIFFERENTIAL Routine 06/29/2007 5:58 AM CDT HEMOGLOBIN AND HEMATOCRIT Timed Study 06/28/2007 3:14 PM CDT PATHOLOGY Routine 06/28/2007 10:08 AM CDT POC , URINE Routine 06/28/2007 5:40 AM CDT HEMOGLOBIN AND HEMATOCRIT Routine 06/15/2007 10:59 AM CDT documented in this encounter Results * (ABNORMAL) CBC WITH DIFFERENTIAL (06/29/2007 5:58 AM CDT) HEMATOCRIT 31.3(L) 35.5 - 44.0 % [facility] RDW-STDEV 52.0(H) 37.1 - 48.7 fL [facility] RBC 4.10 3.90 - 4.90 M/uL [facility] MCHC 29.1(L) 31.5 - 35.5 % [facility] MCV 76.3(L) 82.0 - 99.0 fL [facility] PLATELETS 368(H) 140 - 350 K/uL [facility] HEMOGLOBIN 9.1(L) 11.8 - 14.8 g/dL [facility] RDW 18.6(H) 11.5 - 14.5 % [facility] WBC 17.3(H) 4.0 - 9.8 K/uL [facility] MCH 22.2(L) 27.2 - 32.6 pg [facility] MPV 9.2(L) 9.3 - 12.4 fL [facility] MONOCYTES 6 3 - 13 % [facility] MONOCYTE ABSOLUTE 1.00 0.10 - 1.30 K/uL [facility] NEUTROPHILS 83(H) 45 - 70 % [facility] NEUTROPHIL ABSOLUTE 14.30(H) 1.90 - 7.00 K/uL [facility] EOSINOPHILS 0 0 - 7 % [facility] EOSINOPHIL ABSOLUTE 0.00 0.00 - 0.70 K/uL [facility] LYMPHOCYTES 11(L) 16 - 45 % [facility] LYMPHOCYTE ABSOLUTE 1.95 0.70 - 4.50 K/uL [facility] BASOPHILS 0 0 - 2 % [facility] BASOPHILS ABSOLUTE 0.01 0.00 - 0.20 K/uL [facility] OVALOCYTES Slight [facility] MICROCYTES Slight [facility] ANISOCYTOSIS Slight [facility] HYPOCHROMIA Moderate [facility] POIKILOCYTES Slight [facility] Blood specimen (specimen) 06/29/2007 5:58 AM CDT 06/29/2007 6:40 AM CDT Deanna Soto MD HEMATOLOGY ORDERABLES Edited [facility] [address] [place] [address] * (ABNORMAL) HEMOGLOBIN AND HEMATOCRIT (06/28/2007 3:14 PM CDT) HEMOGLOBIN 10.3(L) 11.8 - 14.8 g/dL [facility] HEMATOCRIT 33.9(L) 35.5 - 44.0 % [facility] Blood specimen (specimen) 06/28/2007 3:14 PM CDT 06/28/2007 3:23 PM CDT Deanna Soto MD HEMATOLOGY ORDERABLES Final Re sult [facility] [address] [place] [address] * PATHOLOGY (06/28/2007 10:08 AM CDT) FINAL REPORT [facility] [address] [place], [place] [address] Patient: YUMI PRYOR : 1960 Procedure Date: 06/28/2007 Accession Date: 06/28/2007 Case No: [id number] Ordering Dr: PIETRO ISSA Case types AW, BW, FW, NW and SH are performed by [facility], [place], [place] SURGICAL PATHOLOGY & NON-GYNECOLOGIC CYTOPATHOLOGY REPORT DIAGNOSIS UTERUS, CERVIX, HYSTERECTOMY: - NO PATHOLOGIC DIAGNOSIS. UTERUS, ENDOMETRIUM, HYSTERECTOMY: - PROLIFERATIVE PHASE PATTERN. UTERUS, MYOMETRIUM, HYSTERECTOMY: - LEIOMYOMAS, MULTIPLE. - ENDOMETRIOSIS, SUBSEROSAL. Specimen Description: Uterus and cervix, fibroids. Operative Procedure: Vaginal hysterectomy. Patient Information/Histor y/Diagnosis: Menorrhagia, fibroid uterus. Gross: Received in one container labeled Yumi Pryor, uterus, cervix, fibroids is a 204-g uterus which is received in six pieces and measures 12.0 x 9.0 x 5.2 cm in aggregate. The serosa is pink-rodriguez and glistening with one firm well-circumscribe d nodule, 0.6 cm in greatest dimension. Sectioning demonstrates a white-rodriguez, whorled cut surface with no areas of hemorrhage or necrosis identified. The 4.5 x 3.0-cm ectocervix is pink-rodriguez, focally disrupted, and glistening. The 1.7 cm slit os leads into a 3.5-cm trabeculated endocervical canal. The transformation zone is irregular but distinct. The dimensions of the endometrial cavity cannot be determined due to the state in which the specimen was received. The 0.1 cm thick endometrium is pink-rodriguez and focally hemorrhagic. The myometrium is at least 3.0 cm in thickness. It is pink-rodriguez and remarkable for multiple firm, well- circumscribed nodules ranging from 0.4 cm to 3.5 cm in greatest dimension. Sectioning of the nodules demonstrates a white, whorled cut surface with no areas of hemorrhage or necrosis identified. The bilateral adnexa are not included. Item Repair Manager sections are submitted as follows: A1 and A2- cervix; A3 and A4-endomyometrium; A5-subserosal nodule; A6-intramural nodules. [facility] 06.28.2007 12:28 pm Microscopic: The slides are labeled [id number], MeeraYumi yu. The cervix is unremarkable. The endometrium has a proliferative-phas e pattern. The myometrium contains multiple nodules composed of interlacing bundles of uniform smooth muscle cells. There is no evidence of atypia or significant mitotic activity. Subserosal deposits of benign endometrial glands and stroma are present associated with smooth muscle hypertrophy. [facility] [id number] 12:01 pm Staging Form: No. ELECTRONIC SIGNATURE FOR RODNEY BARTON M.D.- 06/29/07 04:29 pm INTERFACE SYSTEM 06/28/2007 10:0 8 AM CDT us Pietro Issa MD PATHOLOGY/CYTOLOGY ORDERABLE S Final Result Performing Organization Address [facility] de Phone Number INTERFACE SYSTEM Refer to clinic/hospital department * POC , URINE (06/28/2007 5:40 AM CDT) , URINE POC Negative Negative [facility] Urine specimen (specimen) 06/28/2007 5:40 AM CDT 06/28/2007 5:40 AM CDT us Pietro Issa MD POINT OF CARE TESTING Final Result Performing Organization Address [facility] de Phone Number [facility] [address] [place] [address] * (ABNORMAL) HEMOGLOBIN AND HEMATOCRIT (06/15/2007 10:59 AM CDT) HEMOGLOBIN 10.8(L) 11.8 - 14.8 g/dL [facility] HEMATOCRIT 36.3 35.5 - 44.0 % [facility] Blood specimen (specimen) 06/15/2007 10:59 AM CDT 06/15/2007 12:36 PM CDT us Pietro Issa MD HEMATOLOGY ORDERABLES Final Result Performing Organization Address [facility] Co de Phone Number [facility] [address] [place] [address] documented in this encounter Visit Diagnoses Diagnosis Excessive or frequent menstruation documented in this encounter Care Teams Reconciler Relationship Specialty Start Date End Date Saurav Huff MD PCP - General Family Practice 12/28/17 documented as of this encounter
--- OUTSIDE RECORDS SUMMARY | 2024-06-20 11:20 | XMS_ITS | Encounter Summary ---
Author Organization [facility] Address [address] [place] [address] Care Team Providers Care Art Museum Aide Name Role Phone Saurav Huff MD Primary Care Provider +1- [phone] Encounter Details Date Type Department Care Team (Late st Contact Info) Description 10/07/2005 Orders Only [facility] Internal Medicine Medical [place] A [facility] 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 MEDICATIONS: Medication list current. feosol iron pills CHIEF COMPLAINT Seen as a new patient to get established with the practice. pe, blood work HISTORY: HISTORY: 530.81-GASTROESOPHAGEAL REFLUX (GERD) The patient's dyspeptic symptoms remain stable. The patient has significant abdominal pain. No complications noted from the medication presently being used. However if misses just one dose has symptoms. 285.9-ANEMIA UNSPECIFIED The anemic symptoms began weeks ago. The patient has fatigue. There is a positive history of heavy menstrual periods, no history of dark stools. The patient has had no previous evaluation for these symptoms. The patient was previously treated with iron supplements. Recentlydx'd by OB-who has hysteroscopy scheduled. HISTORY OF PRESENT ILLNESS: UPPER RESPIRATORY: Symptoms include post nasal drainage, symptoms include runny nose, no symptoms of shortness of breath. CURRENT PROBLEM LIST: CURRENT MEDICATION LIST: CELEXA ORAL TABLET 20 MG, qd ADVAIR DISKUS INHALATION MISCELLANEOUS 250-50 MCG/DOSE, 1 bid PRILOSEC OTC ORAL TABLET ENTERIC COATED 20 MG, qd ALBUTEROL INHALATION AEROSOL SOLUTION 90 MCG/ACT, as needed CURRENT ALLERGY LIST: SULFA DRUGS ROS: new patient history form reviewed 10/07/05 PAST MEDICAL HISTORY: new patient history form reviewed 10/07/05 FAMILY HISTORY: new patient history form reviewed 10/07/05 SOCIAL HISTORY: new patient history form reviewed 10/07/05 TOBACCO USE: Currently smokes. DISCUSSED SMOKIN.06. PHYSICAL EXAMINATION: CONSTITUTIONAL: GENERAL APPEARANCE: In no acute distress, OVERWEIGHT BODY HABITUS. EYES: CONJUNCTIVAE/LIDS: Conjunctivae and lids appear normal. EARS, NOSE, MOUTH AND THROAT: NOSE (AND SINUS): TURBINATES SWOLLEN BILATERALLY. ORAL: Inspection of gums, lips, palate, and teeth normal. No scars, lesions, or masses. Oral mucosaunremarkable with non-inflamed posterior pharynx. NECK/THYROID: Trachea midline. No thyroid enlargement, tenderness, or mass. No supraclavicular or cervical adenopathy. RESPIRATORY: Clear to auscultation and percussion. Normal respiratory effort. CARDIOVASCULAR: CARDIAC: Regular rhythm. No murmurs, rubs, or gallops. ARTERIAL: Aortic pulses of normal amplitude with no bruits. EDEMA/VARICOSITIES OF EXTREMITIES: No edema or varicosities. GASTROINTESTINAL: ABDOMEN: Soft, non-tender, without masses. Bowel sounds active. LIVER/SPLEEN/KIDNEY: No hepatosplenomegaly, tenderness or nodularity. Kidneys not palpable. PSYCHIATRIC: Judgment appropriate. Oriented. Normal memory. Mood and affect appropriate. ASSESSMENT/PLAN: 530.81-GASTROESOPHAGEAL REFLUX (GERD) this w/ anemia I'm going to check stool guiacs and get EGD MEDICATIONS: PRILOSEC OTC ORAL TABLET ENTERIC COATED 20 MG, qd, 90 Dispensed, status: NEW PRESCRIPTION, 10/07/2005. V70.0-ROUTINE GENERAL MEDICAL EXAMINATION LAB ORDERS: Order number: [id number] Test Ordered: COMPREHENSIVE METABOLIC PANEL 1112 Order number: [id number] Test Ordered: CBC W/ DIFFERENTIAL 3150 Order number: [id number] Test Ordered: TSH (REFLEX FREE T4/FREE T3) 1727 Order number: [id number] Test Ordered: LIPID PANEL 1078 285.9-ANEMIA UNSPECIFIED - needs GI eval as well. 477.8-ALLERGIC RHINITIS MEDICATIONS: FLONASE NASAL SUSPENSION 50 MCG/ACT, 2 sprays per nostil QD, 3 Dispensed, 3 Fills, status: NEW PRESCRIPTION, 10/07/2005. SPECIALTY REFERRAL: EGD- GERD w/ Anemia GASTROENTEROLOGY Dr. Ryan Perez ph: [phone] fax: [phone]. HEALTH MAINTENANCE: LAST BREAST EXAM DATE: 09/08. LAST PAP DATE: 09/08. LAST DATE PELVIC EXAM: 09/08. LAST MAMMOGRAM DATE: 09/08. PREVENTIVE COUNSELING The patient was counseled regarding screening procedures and recommended schedule for mammography, GI hemoccult testing, colonoscopy, cholesterol, thyroid and diabetes screening, smoking cessation. RETURN VISIT : Patient instructed to return in 1 year. Electronically Signed by: Junie Swan MD on October documented in this encounter Plan of Treatment Not on file documented as of this encounter Visit Diagnoses Not on filedocumented in this encounter Care Teams Art Museum Aide Relationship Specialty Start Date End Date Saurav Huff MD PCP - General Family Practice 12/28/17 documented as of this encounter
--- OUTSIDE RECORDS SUMMARY | 2024-06-20 11:20 | XMS_ITS | Encounter Summary ---
Author Organization [facility] Address [address] [place] [address] Care Team Providers Care Director Statistical Programming Name Role Phone Saurav Huff MD Primary Care Provider +1- [phone] Encounter Details Date Type Department Care Team (Late st Contact Info) Description 10/07/2005 Outpatient Historical [facility] Internal Medicine Medical [place] A [facility] [address] [address] Junie Swan MD [facility] [address] [place] [address] Social History Tobacco Use Types Packs/Day Years Used Date Smoking Tobacco: Never Assessed Comments Unknown Sex and Gender Information Value Date Recorded Sex Assigned at Not on file 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 Gender Identity Not on file Sexual Orientation Not on file documented as of this encounter Last Filed Vital Signs Vital Sign Reading Time Taken Comments Blood Pressure 120/80 10/07/2005 2:15 PM CDT Pulse 72 10/07/2005 2:15 PM CDT Temperature 37.1 C (98.7 F) 10/07/2005 2:15 PM CDT Respiratory Rate - - Oxygen Saturation - - Inhaled Oxygen Concentration - - Weight 105.7 kg (233 lb) 10/07/2005 2:15 PM CDT Height 165.1 cm (5' 5 ) 10/07/2005 2:15 PM CDT Body Mass Index 38.77 10/07/2005 2:15 PM CDT documented in this encounter Plan of Treatment Not on file documented as of this encounter Visit Diagnoses Not on filedocumented in this encounter Care Teams Director Statistical Programming Relationship Specialty Start Date End Date Saurav Huff MD PCP - General Family Practice 12/28/17 documented as of this encounter
--- OUTSIDE RECORDS SUMMARY | 2024-06-20 11:20 | XMS_ITS | Encounter Summary ---
Author Organization [facility] Address [address] [place] [address] Care Team Providers Care Tax Commissioner Name Role Phone Saurav Huff MD Primary Care Provider +1- [phone] Encounter Details Date Type Department Care Team (Late st Contact Info) Description 12/29/2006 Orders Only [facility] Internal Medicine Medical [place] A [facility] [address] [facility] [address] [address] Junie Swan MD [facility]5 [facility] [address] [place] [address] Social History Tobacco Use Types Packs/Day Years Used Date Smoking Tobacco: Never Assessed Comments Unknown Sex and Gender Information Value Date Recorded Sex Assigned at Not on file 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 ALTERNATIVE PHONE NUMBER: WHO CALLED: Patient called. CURRENT ALLERGY LIST: SULFA DRUGS PHARMACY NUMBER: PROBLEMS: Patient called stating that she slept on her neck funny and she woke up on wednesday morningwith neck pain and she has been using Advil 800 mg every 6 hours and been using heat and ice and her neck is not any better..........patient states that she is experiencing muscle spasms on the rightside of her neck and it travels down to her right shoulder and right arm..........little tingling in her right fingers at times..........Patient is wanting a muscle relaxer if possible?? SECTION 1: DOCTOR`S RESPONSE: arpita 12/29/06 at 03:55 pm MEDICATIONS: Call in to Pharmacy CYCLOBENZAPRINE HCL ORAL TABLET 10 MG, 1/2-1 Three Times A Day, As Needed, 30 Dispensed, status: NEW PRESCRIPTION, 12/29/2006. FINAL ACTION: kenneth 12/29/06 at 04:39 pm Spoke with patient 12/29/06 at 04:39 pm. Called pharmacy at 12/29/06 at 04:39 pm. Electronically Signed by: Eden Varela on Friday, December 29, 2006 documented in this encounter Plan of Treatment Not on file documented as of this encounter Visit Diagnoses Not on filedocumented in this encounter Care Teams Tax Commissioner Relationship Specialty Start Date End Date Saurav Huff MD PCP - General Family Practice 12/28/17 documented as of this encounter
== END 2024-06-20 10:05 | disposition home or self-care (01) ==
PROVIDERS: PCP Family Medicine; Visit Provider Family Medicine
DX: R20.2 Paresthesia of skin (principal); R20.0 Anesthesia of skin
CPT/HCPCS: 95886; 95911

== ENCOUNTER 2024-06-24 10:09 | Outpatient (CLI) | payer MEDICARE, OTHER, SELFPAY ==
--- NOTE | ~2024-06-24 | MR_ITS ---
EXAMINATION: MR cervical spine wo con DATE: 06/24/2024 10:48 INDICATION: Neck pain and bilateral arm tingling and pain TECHNIQUE: Magnetic resonance imaging (MRI) of the cervical spine was performed without intravenous c ontrast. Sequences included sagittal T2-weighted FSE, sagittal T2-weighted FS FSE, sagittal T1-weight ed FSE, axial MERGE and axial T2-weighted FSE. COMPARISON: 01/05/2018 FINDINGS: 100 mm anterolisthesis C7 on T1. There is likely developmental anterior and posterior spinal fusion a t C2-C3. Chronic instrumented C5-C7 anterior spinal fusion with magnetic field artifact associated wi th anterior plate and screw fixation extending from C5-C7. Unfused vertebral body heights are normal. Bone marrow signal intensity is normal. Unfused vertebral disc heights are normal. Mild disc height loss at T2-T3 and T3-T4. There is prominent T2 hyperintense signal centrally in the cord at C5-C6 and to lesser degree at C4-C5. There appears to be decreased cross-sectional area of the intervening cor d at the level of C4-C5. Visualized cervical soft tissues are unremarkable. The following disc levels are specifically discussed: C2-C3: There is osseous fusion across the disc space mild bilateral facet joints. There is no neural foraminal stenosis. There is no central canal stenosis. C3-C4: Disc is mildly bulging. There is mild to moderate left uncovertebral joint osteoarthritis. The re is mild left and moderate right facet joint osteoarthritis. There is mild right and mild to modera te left neural foraminal stenosis. There is minimal central canal stenosis. C4-C5: Central annular fissure and small central disc extrusion with disc material extending approxim ately 3 mm caudal to the level of the superior endplate of C5. There is and mild right and mild to mo derate left uncovertebral joint osteoarthritis. There is mild left and moderate right facet joint ost eoarthritis. There is mild bilateral neural foraminal stenosis. There is mild central canal stenosis with mild indentation of the central ventral surface of the cord. C5-C6: Disc space and uncovertebral joints are fused hypertrophic change along the posterior aspect o f the fused disc space contributing to moderate central canal stenosis measuring 7 mm AP in the mid s agittal plane. There is mild bilateral facet joint osteoarthritis. There is moderate bilateral neural foraminal stenosis. C6-C7: Disc space and uncovertebral joints are fused mild hypertrophic change along the posterior mar gin of the fused disc space contributing to mild central canal stenosis measuring 8 mm AP in the mid sagittal plane. There are is mild bilateral facet joint osteoarthritis. There is moderate to severe b ilateral neural foraminal stenosis. C7-T1: The disc does not extend beyond the more posterior T1 endplate margin. There is mild right and moderate left uncovertebral joint osteoarthritis. There is mild right and severe left facet joint os teoarthritis. There is mild left neural foraminal stenosis. There is no central canal stenosis. IMPRESSION: 1. 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 2. 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 3. Mild spondylosis in the remainder of the cervical spine. Reviewed, dictated and finalized at location B. IMPRESSION: 1. 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 2. No progression of focal central increased cord signal at C5-C6 and minimally at C4-C5 consistent with progression myelomalacia from prior cord compression with slight decrease in the degree of mild to moderate central canal stenosis a t these levels post interval instrumented C5-C7 anterior spinal fusion. 3. Mild spondylosis in the remainder of the cervical spine.
== END 2024-06-24 10:10 | disposition home or self-care (01) ==
LOC: MICIMG 10:12
PROVIDERS: PCP Family Medicine; Visit Provider Family Medicine
DX: R20.0 Anesthesia of skin (principal); R20.2 Paresthesia of skin; Z98.890 Other specified postprocedural states; M48.02 Spinal stenosis, cervical region; G99.2 Myelopathy in diseases classified elsewhere; Z98.1 Arthrodesis status; M47.892 Other spondylosis, cervical region
CPT/HCPCS: 72141

== ENCOUNTER 2024-09-28 11:13 | Outpatient (CLI) | payer MEDICARE, OTHER, SELFPAY ==
--- NOTE | ~2024-09-28 | DEXA_ITS ---
Bone Density Report Name: GURMEET SPRAGUE Age: 64 Sex: Female Ethnicity: White Date of : 1960 Indication: postmenopausal; screening for osteoporosis; asthma or emphysema; Referring Provider: RIVAS DOE Study: Bone densitometry was performed. Exam Date: September 28, 2024 Accession number: [id number] Bone Density: Region BMD T-score Z-score Classification AP Spine(L1-L4) 1.167 1.1 2.9 Normal Femoral Neck (Left) 0.589 -2.3 -0.8 Osteopenia Total Hip (Left) 0.789 -1.3 0.0 Osteopenia Femoral Neck (Right) 0.561 -2.6 -1.1 Osteoporosis Total Hip (Right) 0.798 -1.2 0.1 Osteopenia Total Hip Mean 0.794 -1.3 0.1 Osteopenia World Health Organization criteria for BMD impression classify patients as: Normal (T-score at or above -1.0), Osteopenia (T-score between -1.0 and -2.5), or Osteoporosis (T-score at or below -2.5). 10-year Fracture Risk: FRAX not reported because: Some T-score for Spine Total or Hip Total or Femoral Neck at or below -2.5 Previous Exams: -- Region Exam Age BMD T-score BMD Change BMD Change Date g/cm2 vs Baseline vs Previous -- AP Spine (L1-L4) 09/28/2024 64 1.167 1.1 -4.5%# -4.5%# 05/13/2021 60 1.222 1.6 Total Hip(Left) 09/28/2024 64 0.789 -1.3 -4.4%# -4.4%# 05/13/2021 60 0.825 -1.0 Total Hip(Right) 09/28/2024 64 0.798 -1.2 -3.1%# -3.1%# 05/13/2021 60 0.824 -1.0 -- *Denotes significance at 95% confidence level, LSC for AP Spine = 0.022 g/cm2, LSC for Total Hip = 0.027 g/cm2 # Denotes dissimilar scan types or analysis methods Clinical Information Provided by Patient: Has used the following medications: HRT (i.e. estrogen/hormone therapy), Vitamin D, Calcium Has the following medical conditions: Asthma or Emphysema Patient maximum height was 64 Menopause Age: 60 No regular weight bearing exercise Drinks caffeinated beverages Onset of menses at age 11 Number of children 2 Impression: The patient has osteoporosis, based on the Right Femoral Neck T-score. Unable to evaluate interval change due to the use of different scan modes. Discussion: INCREASED RISK OF FRACTURE. BONE DENSITY IS UNDESIRABLY LOW AT ONE OR MORE SKELETAL SITES, CONSISTENT WITH POSTMENOPAUSAL OSTEOPOROSIS. This patient's lowest T-score meets the World Health Organization's (WHO) criteria for osteoporosis at one or more sites (T-score -2.5 or below). In untreated patients, the risk of osteoporotic fracture increases approximately two-fold for each 1.0 SD decrease in T-score. Low bone density is not the only risk factor for fracture; also consider factors such as patient's age, frailty or poor health, risk of falling, risk of injury, previous osteoporotic fracture, family history of osteoporosis, cigarette smoking, low body weight, etc. Not everyone with low bone mineral density has osteoporosis; osteomalacia and other metabolic bone disorders should also be considered. Patients who have osteoporosis should be evaluated for specific diseases and conditions (secondary causes) that may cause or contribute to bone loss. The [place] Association of Clinical Endocrinologists (AACE) and National Osteoporosis Foundation (NOF) recommend pharmacologic intervention for all postmenopausal women whose T-score is in this range. The patient should follow a healthful lifestyle (good nutrition with adequate calcium and vitamin D, and appropriate weight-bearing exercise). Follow-Up: Consider a repeat BMD and Vertebral Fracture Assessment (VFA) exam in 2 years or sooner if medically necessary, to reassess this patient's status. Reported by: NIKO on 09/28/2024 11:28:00 AM. Reviewed, dictated and finalized at location A.
== END 2024-09-28 11:14 | disposition home or self-care (01) ==
LOC: MICIMG 11:13
PROVIDERS: PCP Family Medicine; Visit Provider Student in an Organized Health Care Education/Training Program
DX: Z78.0 Asymptomatic menopausal state (principal); M85.852 Other specified disorders of bone density and structure, left thigh; M85.851 Other specified disorders of bone density and structure, right thigh; M81.0 Age-related osteoporosis without current pathological fracture
CPT/HCPCS: 77080

== ENCOUNTER 2025-01-16 13:16 | Outpatient (CLI) | payer MEDICARE, OTHER, SELFPAY ==
--- NOTE | ~2025-01-16 | US_ITS ---
EXAMINATION: US pelvic complete w TV, 01/16/2025 13:18 CDT HISTORY: R14.0 - Abdominal distension (gaseous) Comparison: None Technique: De La Rosa-scale and color Doppler images were obtained. Findings: Uterus: Post hysterectomy. . Right Ovary:Right ovary not identified. Left Ovary: Left ovary not identified. Free Fluid: None Impression: No etiology to explain the patient's symptoms. Reviewed, dictated and finalized at location P. Impression: No etiology to explain the patient's symptoms.
== END 2025-01-16 13:17 | disposition home or self-care (01) ==
LOC: MICIMG 13:17
PROVIDERS: PCP Family Medicine; Visit Provider Family Medicine
DX: R14.0 Abdominal distension (gaseous) (principal)
CPT/HCPCS: 76830; 76856

== ENCOUNTER 2025-03-14 01:33 | Day surgery (SDC) | payer MEDICARE, OTHER, SELFPAY ==
[2025-02-21 11:08] VITALS: BMI 37.8
--- OUTSIDE RECORDS SUMMARY | 2025-03-14 01:37 | XMS_ITS | Encounter Summary ---
Author Organization [facility] Address [address] [place] [address] Care Team Providers Care Supervisor [employer]ision Optical Elements Name Role Phone Saurav Huff MD Primary Care Provider +1- [phone] Encounter Details Date Type Department Care Team (Late st Contact Info) Description 10/18/2006 Orders Only [facility] Internal Medicine [facility] [address] [address] Junie Swan MD [address] [place] [address] [address] [place] [address] Social History Tobacco Use Types Packs/Day Years Used Date Smoking Tobacco: Never Assessed Comments Unknown Sex and Gender Information Value Date Recorded Sex Assigned at Not on file Legal Sex Female 4:54 AM SUPERVISOR CLAIMS Gender Identity Not on file Sexual Orientation Not on file documented as of this encounter Plan of Treatment Upcoming Encounters Date Type Department Care Team (Late st Contact Info) Description 04/10/2025 1:00 PM SUPERVISOR CLAIMS Office Visit [facility] Neurosurgery - [facility] [address] [place] [address] Mario Osei MD [address] [facility] [facility] [address] [address] -x0 (Work) documented as of this encounter Visit Diagnoses Not on filedocumented in this encounter Care Teams Supervisor [employer] Optical Elements Relationship Specialty Start Date End Date Saurav Huff MD PCP - General Family Practice 12/28/17 documented as of this encounter
--- OUTSIDE RECORDS SUMMARY | 2025-03-14 01:37 | XMS_ITS | Encounter Summary ---
Author Organization [facility] Address [address] [place] [address] Care Team Providers Care Forge Utility Worker Name Role Phone Saurav Huff MD Primary Care Provider +1- [phone] Encounter Details Date Type Department Care Team (Late st Contact Info) Description 10/07/2005 Outpatient Historical [facility] Internal Medicine Medical [place] A [facility] [address] [facility] [facility] [address] [facility] [address] [address] Junie Swan MD [address] [place] [address] [address] [place] [address] Social History Tobacco Use Types Packs/Day Years Used Date Smoking Tobacco: Never Assessed Comments Unknown Sex and Gender Information Value Date Recorded Sex Assigned at Not on file Legal Sex Female 4:54 AM ICU NURSE Gender Identity Not on file Sexual Orientation [...] 2:15 PM CDT Height 165.1 cm (5' 5) 10/07/2005 2:15 PM CDT Body Mass Index 38.77 10/07/2005 2:15 PM CDT documented in this encounter Plan of Treatment Upcoming Encounters Date Type Department Care Team (Late st Contact Info) Description 04/10/2025 1:00 PM ICU NURSE Office Visit [facility] Neurosurgery - [facility] [address] [facility] [address] [place] [address] Mario Osei MD [address] [facility] [address] [address] -x0 (Work) documented as of this encounter Visit Diagnoses Not on filedocumented in this encounter Care Teams Forge Utility Worker Relationship Specialty Start Date End Date Saurav Huff MD PCP - General Family Practice 12/28/17 documented as of this encounter
--- OUTSIDE RECORDS SUMMARY | 2025-03-14 01:37 | XMS_ITS | Encounter Summary ---
Author Organization [facility] Address [address] [place] [address] Care Team Providers Care Bush And Vine Farmer Fruit Crops Name Role Phone Saurav Huff MD Primary Care Provider +1- [phone] Encounter Details Date Type Department Care Team (Late st Contact Info) Description 12/29/2006 Orders Only [facility] Internal Medicine Medical [place] A [facility] [address] [facility] [address] [facility] [address] [address] Junie Swan MD [address] [place] [address] [address] [place] [address] Social History Tobacco Use Types Packs/Day Years Used Date Smoking Tobacco: Never Assessed Comments Unknown Sex and Gender Information Value Date Recorded Sex Assigned at Not on file Legal Sex Female 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 Electronically Signed by: Eden Varela on Wednesday, December 29, 2006 documented in this encounter Plan of Treatment Upcoming Encounters Date Type Department Care Team (Late st Contact Info) Description 04/10/2025 1:00 PM WHITE METAL CORROSION PROOFER Office Visit [facility] Neurosurgery - [facility] [address] [place] [address] Mario Osei MD [address] [address] [address] -x0 (Work) documented as of this encounter Visit Diagnoses Not on filedocumented in this encounter Care Teams Bush And Vine Farmer Fruit Crops Relationship Specialty Start Date End Date Saurav Huff MD PCP - General Family Practice 12/28/17 documented as of this encounter
--- OUTSIDE RECORDS SUMMARY | 2025-03-14 01:37 | XMS_ITS | Encounter Summary ---
Author Organization [facility] Address [address] [place] [address] Care Team Providers Care News Wire Photo Operator Name Role Phone Saurav Huff MD Primary Care Provider +1- [phone] Encounter Details Date Type Department Care Team (Latest Contact Info) Description 05/24/2007 Outpatient Historical [facility] Ricardo Issa MD [address] [place] [address] Excessive or Frequent Menstruation Social History Tobacco Use Types Packs/Day Years Used Date Smoking Tobacco: Never Assessed Comments Unknown Sex and Gender Information Value Date Recorded Sex Assigned at Not on file Legal Sex Female 4:54 AM PLUG AND MOLD FINISHER Gender Identity Not on file Sexual Orientation Not on file documented as of this encounter Plan of Treatment Upcoming Encounters Date Type Department Care Team (Late st Contact Info) Description 04/10/2025 1:00 PM PLUG AND MOLD FINISHER Office Visit [facility] Neurosurgery - [facility] [address] [place] [phone] Mario Osei MD [address] [facility] [place], [place] [id number] -x0 (Work) documented as of this encounter Procedures Procedure [...] CDT) HEMATOCRIT 31.3(L) 35.5 - 44.0 % [facility] RDW-STDEV 52.0(H) 37.1 - 48.7 fL [facility] RBC 4.10 3.90 - 4.90 M/uL [facility] MCHC 29.1(L) 31.5 - 35.5 % [facility] MCV 76.3(L) 82.0 - 99.0 fL [facility] PLATELETS 368(H) 140 - 350 K/uL [facility] HEMOGLOBIN 9.1(L) 11.8 - 14.8 g/dL [facility] RDW 18.6(H) 11.5 - 14.5 % [facility] WBC 17.3(H) 4.0 - 9.8 K/uL [facility] MCH 22.2(L) 27.2 - 32.6 pg [facility] MPV 9.2(L) 9.3 - 12.4 fL [facility] MONOCYTES 6 3 - 13 % [facility] MONOCYTE ABSOLUTE 1.00 0.10 - 1.30 K/uL [facility] NEUTROPHILS 83(H) 45 - 70 % [facility] NEUTROPHIL ABSOLUTE 14.30(H) 1.90 - 7.00 K/uL [facility] EOSINOPHILS 0 0 - 7 % [facility] EOSINOPHIL ABSOLUTE 0.00 0.00 - 0.70 K/uL [facility] LYMPHOCYTES 11(L) 16 - 45 % [facility] LYMPHOCYTE ABSOLUTE 1.95 0.70 - 4.50 K/uL [facility] BASOPHILS 0 0 - 2 % [facility] BASOPHILS ABSOLUTE 0.01 0.00 - 0.20 K/uL [facility] OVALOCYTES Slight [facility] MICROCYTES Slight [facility] ANISOCYTOSIS Slight [facility] HYPOCHROMIA Moderate [facility] POIKILOCYTES Slight [facility] Blood specimen (specimen) 06/29/2007 5:58 AM CDT 06/29/2007 6:40 AM CDT Result [facility] Deanna Soto MD HEMATOLOGY ORDERABLES Edited Performing Organization Address City/[facility]/ZIP Co de Phone Number [facility] [address] [place] [address] * (ABNORMAL) HEMOGLOBIN AND HEMATOCRIT (06/28/2007 3:14 PM CDT) HEMOGLOBIN 10.3(L) 11.8 - 14.8 g/dL [facility] HEMATOCRIT 33.9(L) 35.5 - 44.0 % [facility] Blood specimen (specimen) 06/28/2007 3:14 PM CDT 06/28/2007 3:23 PM CDT us Deanna Soto MD HEMATOLOGY ORDERABLES Final Re sult [facility] [address] [place] [address] * PATHOLOGY (06/28/2007 10:08 AM CDT) FINAL REPORT [facility] [address] [place], [place] [address] Patient: YUMI PRYOR : 1960 Procedure Date: 06/28/2007 Accession Date: 06/28/2007 Case No: [id number] Ordering Dr: RICARDO ISSA Case types AW, BW, FW, NW and SH are performed by [facility], [place], [place] SURGICAL PATHOLOGY & NON-GYNECOLOGIC CYTOPATHOLOGY REPORT [...] identified. The bilateral adnexa are not included. Driller And Reamer sections are submitted as follows: A1 and A2- cervix; A3 and A4-endomyometrium; A5-subserosal nodule; A6-intramural nodules. [facility] 06.28.2007 12:28 pm Microscopic: The slides are labeled [id number], Yumi Pryor. The cervix is unremarkable. The endometrium has a proliferative-phas e pattern. The myometrium contains multiple nodules composed of interlacing bundles of uniform smooth muscle cells. There is no evidence of atypia or significant mitotic activity. Subserosal deposits of benign endometrial glands and stroma are present associated with smooth muscle hypertrophy. [facility] 06.29.2007 12:01 pm Staging Form: No. ELECTRONIC SIGNATURE FOR RODNEY BARTON M.D.- 06/29/07 04:29 pm INTERFACE SYSTEM 06/28/2007 10:0 8 AM CDT us Ricardo Issa MD PATHOLOGY/CYTOLOGY ORDERABLE S Final Result Performing Organization Address City/[facility] Co de Phone Number INTERFACE SYSTEM Refer to clinic/hospital department * POC , URINE (06/28/2007 5:40 AM CDT) , URINE POC Negative Negative [facility] Urine specimen (specimen) 06/28/2007 5:40 AM CDT 06/28/2007 5:40 AM CDT us Ricardo Issa MD POINT OF CARE TESTING Final Result Performing Organization Address City/[facility] Co de Phone Number [facility] [address] [facility] [place] [place] [address] * (ABNORMAL) HEMOGLOBIN AND HEMATOCRIT (06/15/2007 10:59 AM CDT) HEMOGLOBIN 10.8(L) 11.8 - 14.8 g/dL [facility] HEMATOCRIT 36.3 35.5 - 44.0 % [facility] Blood specimen (specimen) 06/15/2007 10:59 AM CDT 06/15/2007 12:36 PM CDT us Ricardo Issa MD HEMATOLOGY ORDERABLES Final Result Performing Organization Address City/State/[facility] Co de Phone Number [facility] [address] [place] [address] documented in this encounter Visit Diagnoses Diagnosis Excessive or frequent menstruation documented in this encounter Care Teams News Wire Photo Operator Relationship Specialty Start Date End Date Saurav Huff MD PCP - General Family Practice 12/28/17 documented as of this encounter
--- OUTSIDE RECORDS SUMMARY | 2025-03-14 01:37 | XMS_ITS | Encounter Summary ---
Author Organization [facility] Address [address] [place] [address] Care Team Providers Care Valet Manager Name Role Phone Saurav Huff MD Primary Care Provider +1- [phone] Encounter Details Date Type Department Care Team (Late st Contact Info) Description 10/07/2005 Orders Only [facility] Internal Medicine Medical [place] A [facility] [place] [address] [phone] Junie Swan MD [address] [place] [address] [address] [place] [address] Social History Tobacco Use Types Packs/Day Years Used Date Smoking Tobacco: Never Assessed Comments Unknown Sex and Gender Information Value Date Recorded Sex Assigned at Not on file Legal Sex Female 4:54 AM MANAGER BABY Gender Identity Not on file Sexual Orientation Not on file documented as of this encounter Progress Notes * Junie Swan MD - 01/13/2008 9:57 AM CDT BLOOD PRESSURE: 120/80 Left Arm Sitting TEMPERATURE: 98.7??f Oral PULSE: 72 Left Radial, Regular WEIGHT: 233lbs HEIGHT: 5ft5in NURSE NAME: Sri Wiggins ALLERGIES: Allergies are as listed. MEDICATIONS: [...] GENERAL MEDICAL EXAMINATION LAB ORDERS: Order number: [id number] Test Ordered: COMPREHENSIVE METABOLIC PANEL 1112 Order number: [id number] Test Ordered: CBC W/ DIFFERENTIAL 3150 Order number: [id number] Test Ordered: TSH (REFLEX FREE T4/FREE T3) 1727 Order number: [id number] Test Ordered: LIPID PANEL 1078 285.9-ANEMIA UNSPECIFIED - needs GI eval as well. 477.8-ALLERGIC RHINITIS MEDICATIONS: FLONASE NASAL SUSPENSION 50 MCG/ACT, 2 sprays per nostil QD, 3 Dispensed, 3 Fills, status: NEW PRESCRIPTION, 10/07/2005. SPECIALTY REFERRAL: EGD- GERD w/ Anemia GASTROENTEROLOGY Dr. Ryan Perez ph: [phone] fax: [phone]. HEALTH MAINTENANCE: LAST BREAST EXAM DATE: 09/08. [...] st Contact Info) Description 04/10/2025 1:00 PM MANAGER BABY Office Visit [facility] Neurosurgery - [facility] [address] [facility] [place] [phone] Mario Osei MD [address] [facility] [address] [address] -x0 (Work) documented as of this encounter Visit Diagnoses Not on filedocumented in this encounter Care Teams Valet Manager Relationship Specialty Start Date End Date Saurav Huff MD PCP - General Family Practice 12/28/17 documented as of this encounter
--- OUTSIDE RECORDS SUMMARY | 2025-03-14 01:37 | XMS_ITS | Clinical Summary ---
Author Organization [facility] Administrative Offices Address [address] [place] [address] Care Team Providers Care Chorus Dancer Name Role Phone Saurav Huff MD Primary Care Provider +1- [phone] Allergies Active Allergy Reactions Criticality Noted Date [...] rhinitis due to other allergen 10/08/19 06 Encounters Date Type Department Care Team Description 02/20/2025 External Device Data STL ABSTRACTION Provider, Abstract 02/16/2025 Telephone [facility] [address] [facility] [place] [address] Mario Osei MD Needs Appointment 02/16/2025 Telephone [facility] [address] [place] [address] Mario Osei MD Wants Appointment 01/24/2025 External Device Data STL ABSTRACTION Provider, Abstract 01/23/2025 External Device Data STL ABSTRACTION Provider, Abstract 12/19/2024 External Device Data STL ABSTRACTION Provider, Abstract from Last 3 Months Immunizations Immunization Administration Dates Next Due Influenza [...] on file Legal Sex Female 4:54 AM PILLAR MAN Gender Identity Not on file Sexual Orientation [...] 2:45 PM CDT Height 160 cm (5' 3) 10/18/2019 2:45 PM CDT Body Mass Index 41.81 10/18/2019 2:45 PM CDT Plan of Treatment Upcoming Encounters Date Type Department Care Team (Late st Contact Info) Description 04/10/2025 1:00 PM PILLAR MAN Office Visit [facility] [address] [facility] [facility] [place] [address] Mario Osei MD [address] [place] [address] -x0 (Work) Health Maintenance Due Date Last Done Comments DTAP/TDAP/TD VACCINES (1 - Tdap) 07/04/1978 COLORECTAL SCREENING 07/04/2004 Colorectal Cancer Screening 07/04/2004 FIT-DNA Q 3 years 07/04/2004 FIT/FOBT Q 1 year 07/04/2004 Flex Sig/CT Colonography Q 5 years 07/04/2004 ZOSTER VACCINE (1 of 2) 07/04/2009 PNEUMOCOCCAL VACCINE 50+ YEA RS (2 of 2 - PCV) 01/05/2019 01/05/2018 BREAST CANCER SCREENING 09/21/2021 09/22/19 21, 09/28/2019, 09/16/2019, Additional history exists OSTEOPOROSIS SCREENING 07/04/2024 08/31/2018 INFLUENZA VACCINE (#1) 2024 01/03/2018 RSV VACCINE (60+ or ) (1 - 1-dose 75+ series) 07/04/2034 Medical Devices Implanted Type Area Hand Collator Device Identifier Shelf Expiration Date Model / Serial / Lot Plate Watts 2lvl 30mm Ti [id number]--[id number] - Ssterilized Dec 28 2017 Implanted:Qty: 1 on 01/17/2018 by Mario Osei MD at [facility] Plate N/A: Spine Cervical Anterior [employer] 8-02-0 30 / STERILIZE D DEC 28 2017 / LOAD 15 Description:all Depuy spinal hardware was processed on requisition,[id number]. Screw Watts Vari Sd 14mm 8-50-014 - Ssterilized Dec 28 2017 Implanted:Qty: 6 on 01/17/2018 by Mario Osei MD at [facility] Screw N/A: Spine Cervical Anterior [employer] 850-0 14 / STERILIZE D DEC 28 2017 / LOAD 15 Allgrft Spacer Acf 7mm [id number] - [id number] Implanted:Qty: 1 on 01/17/2018 by Mario Osei MD at [facility] Tissue N/A: Spine Cervical Anterior [employer] FOU 06/09/2022 [id number] / [id number] / Description:REQ#[id number] Allgrft Spacer Acf 6mm 935754 - [id number] Implanted:Qty: 1 on 01/17/2018 by Mario Osei MD at [facility] Tissue N/A: Spine Cervical Anterior [employer] FOU 05/15/2022 [id number] / [id number] / Procedures Procedure Name Priority Date/Time Associated Diagnosis Comments XR DEXA BONE DENSITY AXIAL 1 OR MORE SITES Routine 08/31/2018 11:07 AM CDT Encounter for imaging to assess osteoporosis from Last 3 Months or Most Recently Relevant to Health Maintenance Results * XR DEXA BONE DENSITY AXIAL 1 OR MORE SITES (08/31/2018 11:07 AM CDT) Anatomical Region Laterality Modality Digital Radiogra phy 08/31/2018 11:0 8 AM CDT Narrative 08/31/2018 11:14 AM CDT XR DEXA BONE DENSITY AXIAL 1 OR MORE SITES DATE: 08/31/2018 11:07 AM HISTORY: 58 years old Female with post menopausal symptoms. PROCEDURE: Planar images of the lumbar spine and hip(s) using a CyberSense DEXA scanner for bone mineral density determination (BMD). FINDINGS: Lumbar Spine (L1-L4) 1.424 gm/cm2, T-score: +2.0 Left femoral neck 0.846 gm/cm2, T-score: -1.4 Right femoral neck 0.867 gm/cm2, T-score: -1.2 Comments: None IMPRESSION Osteopenic bone mineral density. DEFINITIONS: Normal: T-score above -1.0 Osteopenia T-score less than -1.0 and above -2.5 Osteoporosis: T-score < -2.5 FRAX FRACTURE RISK ASSESSMENT: Risk factors: None. 10 Year Probability Of Fracture -Major Osteoporotic: 6.3% -Hip: 0.4% -Comparison population: [place], A major osteoporotic fracture is defined as a fracture of the spine, forearm, hip or shoulder. FOLLOW-UP RECOMMENDATIONS: Patients without high risk factors for osteoporosis: T-score -1.0 to -1.5 - Consider repeat BMD in 5-10 years T-score -1.5 to -2.0 - Consider repeat BMD in 3-5 years T-score -2.0 to - 2.5 - Consider repeat BMD every 2 years Patients on treatment for osteoporosis: 1-2 years after initiation of treatment and every 2 years [address] Noel Alcaraz DO DICTATION LOCATION: Location 1 - [facility] Procedure Note Noel Alcaraz DO - 08/31/2018 XR DEXA BONE DENSITY AXIAL 1 OR MORE SITES DATE: 08/31/2018 11:07 AM HISTORY: 58 years old Female with post menopausal symptoms. PROCEDURE: Planar images of the lumbar spine and hip(s) using a CyberSense DEXA scanner for bone mineral density determination (BMD). FINDINGS: Lumbar Spine (L1-L4) 1.424 gm/cm2, T-score: +2.0 Left femoral neck 0.846 gm/cm2, T-score: -1.4 Right femoral neck 0.867 gm/cm2, T-score: -1.2 Comments: None IMPRESSION Osteopenic bone mineral density. DEFINITIONS: Normal: T-score above -1.0 Osteopenia T-score less than -1.0 and above -2.5 Osteoporosis: T-score < -2.5 FRAX FRACTURE RISK ASSESSMENT: Risk factors: None. 10 Year Probability Of Fracture -Major Osteoporotic: 6.3% -Hip: 0.4% -Comparison population: [place], A major osteoporotic fracture is defined as a fracture of the spine, forearm, hip or shoulder. FOLLOW-UP RECOMMENDATIONS: Patients without high risk factors for osteoporosis: T-score -1.0 to -1.5 - Consider repeat BMD in 5-10 years T-score -1.5 to -2.0 - Consider repeat BMD in 3-5 years T-score -2.0 to - 2.5 - Consider repeat BMD every 2 years Patients on treatment for osteoporosis: 1-2 years after initiation of treatment and every 2 years [address] Noel Alcaraz DO DICTATION LOCATION: Location 1 - [facility] Ricardo Martínez MD DIAGNOSTIC IMAGING ORDERABLE S Final Result from Last 3 Months or Most Recently Relevant to Health Maintenance Insurance BC[employer] BLUE PREFERRED Advance Directives For more information, please contact: [phone] * Full Code (Latest Code Status on File) Date Activated Date Inactivated Comments 01/17/2018 4:58 PM 01/18/2018 3:11 PM * Full Code Date Activated Date Inactivated Comments 01/17/2018 11:45 AM 01/17/2018 4:58 PM * Full Code Date Activated Date Inactivated Comments 01/17/2018 11:40 AM 01/17/2018 11:45 AM Care Teams Chorus Dancer Relationship Specialty Start Date End Date Saurav Huff MD PCP - General Family Practice 12/28/17
--- OUTSIDE RECORDS SUMMARY | 2025-03-14 01:37 | XMS_ITS | Clinical Summary ---
Author Organization [facility] Address [address] [place] [address] Care Team Providers Care Plater Production Name Role Phone Magali Huff MD Primary [...] drink = 0.6 oz pur e alcohol) Comments No Sex and Gender Information Value Date Recorded Sex Assigned at Not on file Legal Sex Female 3:28 AM BILINGUAL OFFICE ASSISTANT Gender Identity Not on file Sexual Orientation Not on file Obstetrics History Para Term AB IAB SAB Ectopic Multiple Livin g Live Births 2 2 2 Date Outcome GA Total Labor Labor/2nd/3rd Weight Sex Type Anes PTL Ashly A1 A5 Name Clin Term Term Last Filed Vital Signs Vital Sign Reading Time Taken Comments Blood Pressure - - Pulse - - Temperature - - Respiratory Rate - - Oxygen Saturation - - Inhaled Oxygen Concentration - - Weight 96.6 kg (213 lb) 09/25/2024 12:13 PM CDT Height - - Body Mass Index - - Plan of Treatment Health Maintenance Due Date Last Done Comments Depression Screening 1960 Fall Risk Assessment 1960 Hepatitis C Screening 1960 Hepatitis B Screening 07/04/1977 Zoster Vaccine (1 of 2) 07/04/2009 Pneumococcal vaccine 65+ (2 of 2 - PCV) 01/05/2019 01/05/2018 Osteoporosis Screening-Bone Density Scan 08/31/2020 08/31/2018, 08/31/2018 DTaP/Tdap/Td Vaccine (2 - Td or Tdap) 12/10/2023 12/09/2013 Well Visit 65+ 07/04/2024 Influenza Vaccine (#1) 2024 9, 01/03/2018, 12/28/2017, Additional history exists Breast Cancer Screening-Mammogram 09/25/2025 09/25/2024, 09/23/2023, 09/21/2022, Additional history exists Colon Cancer Screening-Colonoscopy 12/13/2029 12/14/2019 Colon Cancer Screening-CT Colonography Discontinued 12/14/2019 Colon Cancer Screening-DNA Stool Discontinued 12/14/19 Colon Cancer Screening-FIT Discontinued 12/14/2019 Colon Cancer Screening-Sigmoidoscopy Discontinued 12/14/2019 Procedures Procedure Name Priority Date/Time Associated Diagnosis Comments SCREENING MAMMOGRAM BILATERAL W DELIA Schedule Routine, Read Routine (OP Routine) 09/25/2024 12:24 PM CDT Screening mammogram, encounter for COLONOSCOPY Routine 12/14/2019 from Last 3 Months or Most Recently Relevant to Health Maintenance Results * Screening Mammogram Bilateral W Delia (09/25/2024 12:24 PM CDT) Anatomical Region Laterality Modality Breast Bilateral Mammography Impressions 09/26/2024 12:01 PM CDT Bilateral No evidence of malignancy in either breast. OVERALL BI-RADS FINAL ASSESSMENT: 1 - Negative RECOMMENDATION: Recommend bilateral annual screening mammography. Narrative 09/26/2024 12:01 PM CDT EXAMINATION: Screening Mammogram Bilateral W Delia: 09/25/2024 COMPARISON: Relevant prior studies available at the time of interpretation were reviewed. TECHNIQUE: Mammography was performed with 2D and digital breast tomosynthesis (DBT) images. CAD was utilized. BREAST PARENCHYMAL COMPOSITION: There are scattered areas of fibroglandular density. FINDINGS: Bilateral There is no suspicious mass, calcification, or architectural distortion in either breast. There have been no significant interval changes from prior studies. Self Screening Mammogram IMG MAMMO PROCEDURES Fi nal Result * Colonoscopy (12/14/2019) Anatomical Region Laterality Modality Other Pradip Correia MD ENDOSCOPY PROCEDURES Final Result from Last 3 Months or Most Recently Relevant to Health Maintenance Insurance [facility] MED[facility] [place] [address] Care Teams Plater Production Relationship Specialty Start Date End Date Magali Huff MD PCP - General 04/02/17
[2025-03-14 12:55] VITALS: BP 116/72; PULSE 70; RESP 18; TEMP 36.7; O2SAT 97
[2025-03-14] MEDS: LACTATED RINGERS 1,000 ML 150 ML IV CONT (13:07)
[2025-03-14] MEDS: SIMETHICONE ORAL SUSPENSION 20 MG/0.3 ML 30 ML BOTTLE 1.8 ML PO (13:08)
--- NOTE | 2025-03-14 13:18 | WPDANESEPPF ---
Anes - Initial Pre Proc Eval Procedure: Operation Date: 03/14/25 13:30 Proposed Procedures p Esophagogastroduodenoscopy EGD - Brayden Esparza MD Date/Time: 03/14/25 13:18 Surgeon: Brayden Esparza MD Pre Op Diagnosis: Early satiety, GERD Patient Data Age: 64 Gender: F Height: 1.6 m Weight: 95 kg Last Vital Signs Temp 36.7 C 03/14/25 12:55 Pulse 70 03/14/25 12:55 Resp 18 03/14/25 12:55 BP 116/72 03/14/25 12:55 Pulse Ox 97 03/14/25 12:55 O2 Del Method Room Air 03/14/25 12:55 Allergies Allergy/AdvReac Type Severity Reaction Status Date / Time shellfish derived Allergy Severe anaphylaxis Verified 03/14/25 12:49 acrisorcin Allergy Mild Rash Verified 03/14/25 12:49 benazepril Allergy Unknown cough Verified 03/14/25 12:49 cat dander Allergy Unknown unknown Verified 03/14/25 12:49 cefuroxime Allergy Unknown Skin Verified 03/14/25 12:49 Reaction demeclocycline Allergy Unknown Skin Verified 03/14/25 12:49 Reaction dog dander Allergy Unknown unknown Verified 03/14/25 12:49 Sulfa (Sulfonamide Allergy Unknown Skin Verified 03/14/25 12:49 Antibiotics) Reaction Home Medications ?Medication ?Instructions ?Recorded ?Confirmed ?Type famotidine 20 mg tablet (Pepcid AC) 20 mg PO DAILY 07/27/19 02/21/25 History btytxbtqqdqk-Wf-eezb-minerals 1 tablet PO DAILY 07/27/19 03/14/25 History (Multiple Vitamin, Womens tablet) paroxetine HCl 10 mg tablet (Paxil) 10 mg PO DAILY 10/17/19 03/14/25 History eyepromise restore 8 mg BYMOUTH ONCE 02/25/21 03/14/25 History albuterol sulfate 90 mcg/actuation 1 puff inhalation DAILY PRN 11/10/22 02/21/25 History aerosol inhaler (Ventolin HFA) Shortness Of Breath epinephrine 0.3 mg/0.3 mL See Rx Instructions .Route .COMPLEX 11/10/22 02/21/25 History injection, auto-injector (EpiPen) calcium 600 mg (as 1 cap PO BID 05/26/23 03/14/25 History carbonate)-vitamin D3 10 mcg (400 unit) capsule fluticasone fur. 200 mcg-umeclid 1 inh inhalation DAILY 05/02/24 03/14/25 History 62.5 mcg-vilant 25 mcg inhalat.powder (Trelegy Ellipta) atorvastatin 40 mg tablet 40 mg PO DAILY #90 tabs 09/22/24 03/14/25 Rx alendronate 70 mg tablet (Fosamax) 70 mg PO WEEKLY #14 tabs 10/02/24 03/14/25 Rx gabapentin 300 mg capsule 300 mg PO QHS #90 caps 12/13/24 03/14/25 Rx telmisartan 20 mg tablet 10 mg (1/2 x 20 mg) PO DAILY #45 12/22/24 03/14/25 Rx tabs estradiol 0.01% (0.1 mg/gram) 1 appful vaginal .TWICE WEEKLY 01/09/25 03/14/25 History vaginal cream ivermectin 1 % topical cream 1 applic topical BID 01/09/25 02/21/25 History omeprazole 20 mg capsule,delayed 20 mg PO DAILY #30 caps 01/12/25 03/14/25 Rx release Patient hx anesthesia problems: none Family hx anesthesia problems: none Results Review: All pre-operative results and documents have been reviewed as part of the pre-operative evaluation. [facility] Past Medical History Medical History Personal history of colonic polyps Breast pain, left Fracture of distal fibula Benign neoplasm of colon Surgical History Surgical History History of neck surgery (~01/27/18) Anterior Cervical Discectomy & Fusion C5-6, C6-7 History of hysterectomy (~06/28/07) Uterus & Cervix Only History of laparoscopy (~1989) Removal of Ovarian Cyst History of tubal ligation (~08/1984) History of left breast biopsy path pending Family History Family History Father Diabetes mellitus Hypertension Mother Hypertension Family history of elevated blood lipids Grandparent Family history of malignant neoplasm of breast Other Family history of arthritis Family history of malignant neoplasm Social History Social History Smoking packs per day: 0.5 Smoking cigarettes per day: 10.0 Years smoked: 40 Smoking pack-years: 20.00 Smoking status: Former smoker Tobacco type: cigarettes Second hand tobacco smoke exposure: No Smoking end date: 04/05/13 Alcohol intake: never Substance use: never Substance use type: does not use Lack of Transportation: No Lack of Food: Never True Current Housing: I Have Housing Concerned About Future Housing: No Difficulty Paying Gas/Electric Bills: No Difficulty Paying for Meds: No Currently Unemployed: No Education: Bachelor's Degree Difficulty w/ Childcare or Family Care: No Living arrangements: alone Spiritual care concerns: No Anes - Eval Final PreProcedure Day of Procedure 03/14/25 13:18 Patient weight: obese Heart: regular rate and rhythm Lungs: clear to auscultation Airway: Mallampati scale class II Neurological: alert and oriented Last oral intake: >/= 8 hours ASA classification: III Emergent: no Anesthetic plan: proceed Anesthesia type and monitoring: general GIVS and standard monitoring Results Review: All pre-operative results and documents have been reviewed as part of the pre-operative evaluation. Informed Consent: The patient's anesthetic plan and its attendant risks and benefits were discussed with the patient/family/POA. Questions were solicited and answers provided to the satisfaction of the patient/family/POA.
--- NOTE | 2025-03-14 14:23 | PM.IMHP2 ---
H&P: HPI History of Present Illness Date/Time: 03/14/25 14:23 Chief Complaint: GERD-dyspepsia Narrative: Patient with a known diagnosis of hiatal hernia, suffering from intermittent heartburn occasional epigastric fullness. She is now referred for EGD. Review of Systems Review of Systems: All systems reviewed & are unremarkable except as noted in HPI and below PMFSH Past Medical History Medical History Personal history of colonic polyps Breast pain, left Fracture of distal fibula Benign neoplasm of colon Surgical History Surgical History History of neck surgery (~01/27/18) Anterior Cervical Discectomy & Fusion C5-6, C6-7 History of hysterectomy (~06/28/07) Uterus & Cervix Only History of laparoscopy (~1989) Removal of Ovarian Cyst History of tubal ligation (~08/1984) History of left breast biopsy path pending Family History Family History Father Diabetes mellitus Hypertension Mother Hypertension Family history of elevated blood lipids Grandparent Family history of malignant neoplasm of breast Other Family history of arthritis Family history of malignant neoplasm Social History Social History Smoking packs per day: 0.5 Smoking cigarettes per day: 10.0 Years smoked: 40 Smoking pack-years: 20.00 Smoking status: Former smoker Tobacco type: cigarettes Second hand tobacco smoke exposure: No Smoking end date: 04/05/13 Alcohol intake: never Substance use: never Substance use type: does not use Lack of Transportation: No Lack of Food: Never True Current Housing: I Have Housing Concerned About Future Housing: No Difficulty Paying Gas/Electric Bills: No Difficulty Paying for Meds: No Currently Unemployed: No Education: Bachelor's Degree Difficulty w/ Childcare or Family Care: No Living arrangements: alone Spiritual care concerns: No Meds Home Medications and Allergies Home Medications ?Medication ?Instructions ?Recorded ?Confirmed ?Type famotidine 20 mg tablet (Pepcid AC) 20 mg PO DAILY 07/27/19 02/21/25 History epatjnlewbpe-El-jsho-minerals 1 tablet PO DAILY 07/27/19 03/14/25 History (Multiple Vitamin, Womens tablet) paroxetine HCl 10 mg tablet (Paxil) 10 mg PO DAILY 10/17/19 03/14/25 History eyepromise restore 8 mg BYMOUTH ONCE 02/25/21 03/14/25 History albuterol sulfate 90 mcg/actuation 1 puff inhalation DAILY PRN 11/10/22 02/21/25 History aerosol inhaler (Ventolin HFA) Shortness Of Breath epinephrine 0.3 mg/0.3 mL See Rx Instructions .Route .COMPLEX 11/10/22 02/21/25 History injection, auto-injector (EpiPen) calcium 600 mg (as 1 cap PO BID 05/26/23 03/14/25 History carbonate)-vitamin D3 10 mcg (400 unit) capsule fluticasone fur. 200 mcg-umeclid 1 inh inhalation DAILY 05/02/24 03/14/25 History 62.5 mcg-vilant 25 mcg inhalat.powder (Trelegy Ellipta) atorvastatin 40 mg tablet 40 mg PO DAILY #90 tabs 09/22/24 03/14/25 Rx alendronate 70 mg tablet (Fosamax) 70 mg PO WEEKLY #14 tabs 10/02/24 03/14/25 Rx gabapentin 300 mg capsule 300 mg PO QHS #90 caps 12/13/24 03/14/25 Rx telmisartan 20 mg tablet 10 mg (1/2 x 20 mg) PO DAILY #45 12/22/24 03/14/25 Rx tabs estradiol 0.01% (0.1 mg/gram) 1 appful vaginal .TWICE WEEKLY 01/09/25 03/14/25 History vaginal cream ivermectin 1 % topical cream 1 applic topical BID 01/09/25 02/21/25 History omeprazole 20 mg capsule,delayed 20 mg PO DAILY #30 caps 01/12/25 03/14/25 Rx release Allergies Allergy/AdvReac Type Severity Reaction Status Date / Time shellfish derived Allergy Severe anaphylaxis Verified 03/14/25 12:49 acrisorcin Allergy Mild Rash Verified 03/14/25 12:49 benazepril Allergy Unknown cough Verified 03/14/25 12:49 cat dander Allergy Unknown unknown Verified 03/14/25 12:49 cefuroxime Allergy Unknown Skin Verified 03/14/25 12:49 Reaction demeclocycline Allergy Unknown Skin Verified 03/14/25 12:49 Reaction dog dander Allergy Unknown unknown Verified 03/14/25 12:49 Sulfa (Sulfonamide Allergy Unknown Skin Verified 03/14/25 12:49 Antibiotics) Reaction Vital Signs Vital Signs - 24 hr 03/14/25 12:55 Temperature 98.0 F Pulse Rate 70 Respiratory Rate 18 Blood Pressure 116/72 Pulse Oximetry 97 Oxygen Delivery Room Air Exam Const: General: cooperative and healthy appearing Resp: Effort & Inspection: normal respiratory effort and able to speak in complete sentences Auscultation: clear to auscultation bilaterally Cardio: Rate: regular rate Rhythm: regular rhythm GI: Inspection: normal to inspection GI Palp: No No hepatosplenomegaly present Auscultation: normal bowel sounds Rectal Exam: deferred Skin: General skin exam: normal color Psych: Appearance: grossly normal Mental Status: mental status grossly normal Assessment and Plan Assessment and plan (1) Gastroesophageal reflux disease: Onset Date: ~01/12/25 Qualifiers: Esophagitis presence: without esophagitis Qualified Code(s): K21.9 - Gastro-esophageal reflux disease without esophagitis Code(s): K21.9 - Gastro-esophageal reflux disease without esophagitis Status: Acute Assessment and Plan: The patient is deemed a good candidate for the procedure. Consent signed. Will proceed. Prior Studies I have reviewed the following patient records and this information was taken into consideration when formulating the assessment and plan.: previous labs, previous ER visits, previous hospitalizations and previous clinic visits
--- NOTE | 2025-03-14 14:32 | S_PTH ---
PATIENT: Yumi Tello LOC: [facility] U#:[id number] AGE/SX: 64/F ROOM: RE03/14/[address]: Brayden Esparza MD : 1960 BED: DIS: 03/14/2025 SPEC #: [id number] RECD: 03/15/25 09:23 STATUS: FAISAL REHugo #: [id number] BRYANT: 03/14/25 14:[address]: Brayden Esparza DEPT: [facility] Surgical RECD BY: Susan Martínez ENTERED: 03/15/25 09:24 SP TYPE: Surgical OTHR DR: Magali Huff MD Tissues: A - Gastric Biopsy B - Gastric Biopsy C - Esophageal Biopsy Procedures: Hematoxylin and Eosin Stain Gross and Microscopic Level 4
[2025-03-14 14:40] VITALS: BP 91/56; PULSE 80; RESP 21; O2SAT 95
[2025-03-14 14:50] VITALS: BP 111/74; PULSE 72; RESP 16; O2SAT 99
[2025-03-14 15:00] VITALS: BP 113/66; PULSE 67; RESP 19; O2SAT 100
== END 2025-03-14 15:13 | disposition home or self-care (01) ==
PROVIDERS: PCP Family Medicine; Referring Provider Nurse Practitioner; Visit Provider Internal Medicine Gastroenterology
PROC: 0DJ08ZZ Inspection of Upper Intestinal Tract, Via Natural or Artificial Opening Endoscopic (ICD-10-PCS; CPT 43239; principal; 2025-03-14 13:30)
DX: K21.00 Gastro-esophageal reflux disease with esophagitis, without bleeding (principal); K22.70 Barrett's esophagus without dysplasia; K29.50 Unspecified chronic gastritis without bleeding; K31.89 Other diseases of stomach and duodenum; K44.9 Diaphragmatic hernia without obstruction or gangrene; E66.9 Obesity, unspecified; Z68.37 Body mass index [BMI] 37.0-37.9, adult; Z79.51 Long term (current) use of inhaled steroids; Z79.83 Long term (current) use of bisphosphonates; Z98.890 Other specified postprocedural states; Z98.1 Arthrodesis status; Z98.51 Tubal ligation status; Z87.891 Personal history of nicotine dependence; Z86.0100 Personal history of colon polyps, unspecified; Z80.3 Family history of malignant neoplasm of breast
CPT/HCPCS: 43239; 88305; J2003; J2704; J7120